=== PATIENT | female | born 1985 | race Caucasian/White ===

== ENCOUNTER 2017-10-04 15:34 | Inpatient (IN) | payer OTHER ==
[2017-10-04 16:36] LABS: ABS Basophils 0 10^3/ul (0-0.2); ABS Eosinophils 0.1 10^3/ul (0-0.6); ABS Lymphocytes 1.7 10^3/ul (1.0-4.8); ABS Monocytes 0.3 10^3/ul (0-0.8); ABS Neutrophils 3.3 10^3/ul (1.5-7.7); ABS Nucleated RBC 0 10^3/ul; Eosinophil % 2.5 % (0-6); Hematocrit 46 % (35-47); Hemoglobin 15.7 g/dl (12.0-16.0); Lymphocyte % 30.6 % (25-47); Mean Corpuscular HGB Conc 34 g/dl (31-36); Mean Corpuscular Hemoglobin 30 pg (27-31); Mean Corpuscular Volume 87 fL (80-97); Mean Platelet Volume 8.2 um3 (7.4-10.4); Nucleated Red Blood Cells % 0.1; Platelet Count 239 10^3/ul (150-450); Red Blood Count 5.27 10^6/ul (4.00-5.40); Red Cell Distribution Width 13 % (10.5-15); White Blood Count 5.5 10^3/ul (3.5-10.8)
--- NOTE | 2017-10-04 17:14 | ED ---
Psychiatric Complaint - HPI Summary HPI Summary: The patient is a 32 y/o F presenting to [facility] with a chief complaint of severe onset of depression gradually worsening over the last two months. She states that she "doesn't want to live anymore" and has SI with one attempt by OD of Cyclobenzaprine and Imitrex. She additionally c/o unable to sleep, quick weight loss of 10lbs in the last week, no appetite, and nausea/vomiting. She denies visual and auditory hallucinations. She just started taking Zoloft again three days ago after not taking it for the last two months, but she states that she doesn't think it is helping. Denies alcohol and drug use, but smokes 1 pack of cigarettes a day. LNMP was in April 2017 since stopping control and being unable to get the prescription. - History Of Current Complaint Chief Complaint: EDMentalHealth Time Seen by Provider: 10/04/17 16:14 - Allergies/Home Medications Allergies/Adverse Reactions: Allergies Allergy/AdvReac Type Severity Reaction Status Date / Time azithromycin [From Zithromax] Allergy Vomiting Verified 10/04/17 16:06 fluconazole [From Diflucan] Allergy Unknown Verified 10/04/17 16:06 Reaction Details sulfamethoxazole Allergy Unknown Verified 10/04/17 16:06 [From Bactrim] Reaction Details trimethoprim [From Bactrim] Allergy Unknown Verified 10/04/17 16:06 Reaction Details venlafaxine [From Effexor] Allergy Hives Verified 10/04/17 16:06 Home Medications: Home Medications Buspar TAB * 10/04/17 [History] Zofran 4 MG Tab* 10/04/17 [History] Zoloft* 10/04/17 [History] PMH/Surg Hx/FS Hx/Imm Hx Endocrine/Hematology History: Denies: Hx Diabetes Opthamlomology History: Denies: Hx Legally Blind EENT History: Denies: Hx Deafness Psychiatric History: Reports: Hx Depression - Immunization History Immunizations Up to Date: Yes Infectious Disease History: No Infectious Disease History: Denies: Traveled Outside the [place] in Last 30 Days - Family History Known Family History: Negative: Diabetes - Social History Alcohol Use: None Substance Use Type: Reports: None Smoking Status (MU): Never Smoked Tobacco Review of Systems Positive: Vomiting, Nausea, Other - no appetite, quick accidental weight loss Neurological: Other - unable to sleep Positive: Depressed, Other - POSITIVE: SI; NEGATIVE: visual or auditory halluciations All Other Systems Reviewed And Are Negative: Yes Physical Exam - Summary Physical Exam Summary: Constitutional: Well-developed, thin, Alert. (-) Distressed, Tearful Skin: Warm, Dry HENT: Normocephalic; Atraumatic Eyes: Conjunctiva normal Neck: Musculoskeletal ROM normal neck. (-) JVD, (-) Stridor, (-) Tracheal deviation Cardio: Rhythm regular, rate normal, Heart sounds normal; Intact distal pulses; The pedal pulses are 2+ and symmetric. Radial pulses are 2+ and symmetric. (-) Murmur Pulmonary/Chest wall: Effort normal. (-) Respiratory distress, (-) Wheezes, (-) Rales Abd: Soft, (-) epigastric tenderness, (-) Distension, (-) Guarding, (-) Rebound Musculoskeletal: (-) Edema Lymph: (-) Cervical adenopathy Neuro: Alert, Oriented x3 Psych: Mood and affect Normal Triage Information Reviewed: Yes Vital Signs On Initial Exam: Initial Vitals Temp Pulse Resp BP Pulse Ox 98.5 F 93 17 121/65 98 10/04/17 15:58 10/04/17 15:58 10/04/17 15:58 10/04/17 15:58 10/04/17 15:58 Vital Signs Reviewed: Yes Diagnostics - Vital Signs Vital Signs Temp Pulse Resp BP Pulse Ox 10/04/17 15:58 98.5 F 93 17 121/65 98 - Laboratory Lab Results: Lab Results 10/04/17 10/04/17 Range/Units 16:28 16:28 WBC 5.5 (3.5-10.8) 10^3/ul RBC 5.27 (4.00-5.40) 10^6/ul Hgb 15.7 (12.0-16.0) g/dl Hct 46 (35-47) % MCV 87 (80-97) fL MCH 30 (27-31) pg MCHC 34 (31-36) g/dl RDW 13 (10.5-15) % Plt Count 239 (150-450) 10^3/ul MPV 8.2 (7.4-10.4) um3 Neut % (Auto) 60.8 (38-83) % Lymph % (Auto) 30.6 (25-47) % [place] % (Auto) 5.5 (0-7) % Eos % (Auto) 2.5 (0-6) % Baso % (Auto) 0.6 (0-2) % Absolute Neuts (auto) 3.3 (1.5-7.7) 10^3/ul Absolute Lymphs (auto) 1.7 (1.0-4.8) 10^3/ul Absolute Monos (auto) 0.3 (0-0.8) 10^3/ul Absolute Eos (auto) 0.1 (0-0.6) 10^3/ul Absolute Basos (auto) 0 (0-0.2) 10^3/ul Absolute Nucleated RBC 0 10^3/ul Nucleated RBC % 0.1 Sodium 139 (135-145) mmol/L Potassium 4.0 (3.5-5.0) mmol/L Chloride 107 (101-111) mmol/L Carbon Dioxide 26 (22-32) mmol/L Anion Gap 6 (2-11) mmol/L BUN 8 (6-24) mg/dL Creatinine 0.85 (0.51-0.95) mg/dL Est GFR ( Amer) 94.4 (>60) Est GFR (Non-Af Amer) 78.0 (>60) BUN/Creatinine Ratio 9.4 (8-20) Glucose 91 (70-100) mg/dL Calcium 9.4 (8.6-10.3) mg/dL Total Bilirubin 0.80 (0.2-1.0) mg/dL AST 13 (13-39) U/L ALT 11 (7-52) U/L Alkaline Phosphatase 45 (34-104) U/L Total Protein 7.0 (6.4-8.9) g/dL Albumin 4.3 (3.2-5.2) g/dL Globulin 2.7 (2-4) g/dL Albumin/Globulin Ratio 1.6 (1-3) TSH Pending Salicylates < 2.50 (<30) mg/dL Acetaminophen < 15 mcg/mL Serum Alcohol < 10 (<10) mg/dL Result Diagrams: 10/04/17 16:28 10/04/17 16:28 Lab Statement: Any lab studies that have been ordered have been reviewed, and results considered in the medical decision making process. Course/Dx - Course Course Of Treatment: The patient is a 32 y/o F presenting to [facility] with a chief complaint of severe onset of depression gradually worsening over the last two months. She states that she "doesn't want to live anymore" and has SI with one attempt by OD of Cyclobenzaprine and Imitrex. She additionally c/o unable to sleep, quick weight loss of 10lbs in the last week, no appetite, and nausea/ vomiting. She denies visual and auditory hallucinations. She just started taking Zoloft again three days ago after not taking it for the last two months, but she states that she doesn't think it is helping. Denies alcohol and drug use , but smokes 1 pack of cigarettes a day. LNMP was in April 2017 since stopping control and being unable to get the prescription. Upon examination, the pt is thin and tearful. In the ED course, lab results are insignificant. Patient will be a sign-out to Dr. Barbour at shift change pending disposition after MHU. Discharge - Sign-Out/Discharge Documenting (check all that apply): Sign-Out Patient - Patient will be a sign- out to Dr. Barbour at shift change pending disposition after MHU. Signing out patient TO: Fortino Barbour - Discharge Plan Referrals: Man Head DO [Primary Care Provider] - - Attestation Statements Document Initiated by Aleida: Yes Documenting Scribe: No Owen Provider For Whom Aleida is Documenting (Include Credential): Jaya Marquez MD Scribe Attestation: INo, scribed for Jaya Marquez MD on 10/04/17 at 1914. Scribe Documentation Reviewed: Yes Provider Attestation: The documentation as recorded by the No rasheed accurately reflects the service I personally performed and the decisions made by me, Jaya Marquez MD
[2017-10-04 18:08] LABS: Urine Appearance Clear; Urine Blood Negative (Negative); Urine Color Yellow; Urine Ketones 1+ (Negative); Urine Protein Negative (Negative); Urine Specific Gravity 1.014 (1.010-1.030); Urine Urobilinogen Negative (Negative)
[2017-10-04] MEDS ORDERED: SUMAtriptan TAB* 50 MG PO ONE (20:37)
[2017-10-04] MEDS ORDERED: Mouth Piece, Nicotine* 1 EACH CARTRIDGE INH PRN (20:37)
[2017-10-04] MEDS ORDERED: Mouth Piece, Nicotine* 1 EACH CARTRIDGE INH ONE (20:37)
[2017-10-04] MEDS ORDERED: Nicotine GUM* 2 MG PO PRN (20:37)
[2017-10-04] MEDS ORDERED: Nicotine Inhaler* 10 MG AMP INH PRN (20:37)
[2017-10-05] MEDS ORDERED: Acetaminophen TAB* 325 MG PO PRN (00:50)
[2017-10-05] MEDS ORDERED: Al Hydrox/Mg Hydrox/Simet LIQ* 30 ML UDC PO PRN (00:50)
[2017-10-05] MEDS ORDERED: Mouth Piece, Nicotine* 1 EACH CARTRIDGE INH SCH (00:51)
--- NOTE | 2017-10-05 11:41 | PN ---
MHU: Group Therapy Note - Service Type Service Type: 01679 Group Psychotherapy - Cognitive Behavioral Group Therapy ( CBT):Patient was attentive and participatory in CBT programming this morning, and remained in good behavioral control. Patient expressed positive insights regarding relevant treatment interventions and goals. She was tearful at times when discussion addressed relationship stress and loss.
[2017-10-05] MEDS: Vitamin THERAPEUTIC TAB PO SCH (13:30)
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
[2017-10-05] MEDS: Ondansetron TAB* 4 MG PO PRN (16:58)
[2017-10-05] MEDS: hydrOXYzine HCL TAB* 50 MG PO PRN (19:03)
[2017-10-05] MEDS: Mirtazapine TAB* 15 MG PO SCH (20:45)
[2017-10-06] MEDS: Vitamin THERAPEUTIC TAB PO SCH (08:51)
[2017-10-06] MEDS: Ondansetron TAB* 4 MG PO PRN (08:52)
[2017-10-06] MEDS: Nicotine GUM* 2 MG PO PRN ×3 (11:02→19:37)
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
--- NOTE | 2017-10-06 13:12 | PN ---
MHU: Group Therapy Note - Service Type Service Type: [id number] Group Psychotherapy - Cognitive Behavioral Group Therapy ( CBT):Patient attended CBT programming this morning and presented with flat affect that did not vary with discussion. Although responsive to direct prompts to respond to questions, patient did not engage in spontaneous conversation.
[2017-10-06] MEDS: Prazosin CAP* 1 MG PO SCH (20:56)
[2017-10-06] MEDS: Mirtazapine TAB* 15 MG PO SCH (20:56)
[2017-10-06] MEDS: hydrOXYzine HCL TAB* 50 MG PO PRN (20:58)
[2017-10-07] MEDS: Vitamin THERAPEUTIC TAB PO SCH (08:44)
[2017-10-07] MEDS: Nicotine GUM* 2 MG PO PRN (10:12)
[2017-10-07] MEDS: hydrOXYzine HCL TAB* 50 MG PO PRN ×2 (11:45→20:49)
[2017-10-07] MEDS: Ondansetron TAB* 4 MG PO PRN (11:46)
[2017-10-07] MEDS ORDERED: SUMAtriptan TAB* 25 MG PO PRN (12:03)
--- NOTE | 2017-10-07 15:02 | PN ---
Subjective - Subjective Date of Service: 10/07/17 Service Type: 86911 Hosp care 15 min low complexity Subjective: Subha is seen in weekend coverage for Dr. Stoner. She seems to have a somewhat constricted affect but tells me that she's actually feeling better than when she came in and inquires about a discharge target date. She is somatic, complaining of migraine headaches and requests sumatriptan. She denies SI and appears to have a nice visit with two family members at lunchtime. She requests computer privileges. Staff notes indicate that she is adherent with milieu expectations. Objective - Appearance Appearance: Well Developed/Nourished Dysmorphic Features: No Hygiene: Normal Grooming: Well Kept - Behavior Psychomotor Activities: Normal Exhibits Abnormal Movement: No - Attitude and Relatedness Attitude and Relatedness: Cooperative Eye Contact: Good - Speech Quality: Unpressured Latencies: Normal Quantity: Appropriate - Mood Patient's Decription of Mood: "Okay" - Affect Observed Affect: Constricted Affect Consistent with: Dysphoria - Thought Process Patient's Thought Process: Coherent Thought Content: No Passive Wish, No Suicidal Planning, No Homicidal Ideation, No Paranoid Ideation - Sensorium Experiencing Hallucinations: No, Sensorium is Clear Type of Hallucinations: Visual: No, Auditory: No, Command: No - Level of Consciousness Level of Consciousness: Alert Orientation: Yes Intact, Yes Orientated to Time, Yes Orientated to Place, Yes Orientated to Person - Impulse Control Impulse Control: Tenuous - Insight and Judgement Insight and Judgement: Fair - Group Participation Particating in Group Activities: Yes - Medication Management Medication Management Adherence: Yes Assessment - Assessment Merits Inpatient Hospitalization: For Immediate Safety, For Stabilization Inpatient DSM-V Dx: F33.9 Clinical Impression: 32 y.o. single, white female with a history of anxiety, depression and previous attempted self-harm who presented seeking voluntary admission due to suicidal ideations following a break up with her significant other. Plan - Plan Treatment Plan: Name: SUBHA GRANADO Birthdate: 1985 [id number] The patient is tolerating treatment well with prazosin 1mg PO qhs and mirtazapine 15mg PO qhs. She requires further inpatient-level care at this time. Continued Medication Management: Start Medication Medications: Current Medications Acetaminophen (Tylenol Tab*) 650 mg PO Q4H PRN PRN Reason: PAIN or TEMP > 101 F Al Hydrox/Mg Hydrox/Simethicone (Maalox Plus*) 30 ml PO Q4H PRN PRN Reason: INDIGESTION Device (Nicotine Mouth Piece*) 1 each INH [facility] Hydroxyzine HCl (Atarax Tab*) 50 mg PO Q6H PRN PRN Reason: ANXIETY Last Admin: 10/07/17 11:45 Dose: 50 mg Mirtazapine (Remeron Tab*) 15 mg PO BEDTIME [facility] Last Admin: 10/06/17 20:56 Dose: 15 mg Multivitamins (Theragran Tab*) 1 tab PO DAILY [facility] Last Admin: 10/07/17 08:44 Dose: Not Given Nicotine (Nicotine Inhaler*) 10 mg INH Q2H PRN PRN Reason: CRAVING Nicotine Polacrilex (Nicotine Gum*) 2 mg PO Q2H PRN PRN Reason: CRAVING Last Admin: 10/07/17 10:12 Dose: 2 mg Ondansetron HCl (Zofran Tab*) 4 mg PO Q8H PRN PRN Reason: nausea/vomitting Last Admin: 10/07/17 11:46 Dose: 4 mg Prazosin HCl (Minipress Cap*) 1 mg PO BEDTIME [facility] Last Admin: 10/06/17 20:56 Dose: 1 mg Sumatriptan Succinate (Imitrex Tab*) 25 mg PO BID PRN PRN Reason: MIGRAINE HEADACHE - Discharge Plan Discharge Plan: Inpatient Hospitalization Lab Results - Lab Results Lab Results: 10/04/17 10/04/17 10/04/17 16:28 16:28 17:45 WBC 5.5 RBC 5.27 Hgb 15.7 Hct 46 MCV 87 MCH 30 MCHC 34 RDW 13 Plt Count 239 MPV 8.2 Neut % (Auto) 60.8 Lymph % (Auto) 30.6 Gaston % (Auto) 5.5 Eos % (Auto) 2.5 Baso % (Auto) 0.6 Absolute Neuts (auto) 3.3 Absolute Lymphs (auto) 1.7 Absolute Monos (auto) 0.3 Absolute Eos (auto) 0.1 Absolute Basos (auto) 0 Absolute Nucleated RBC 0 Nucleated RBC % 0.1 Sodium 139 Potassium 4.0 Chloride 107 Carbon Dioxide 26 Anion Gap 6 BUN 8 Creatinine 0.85 Est GFR ( Amer) 94.4 Est GFR (Non-Af Amer) 78.0 BUN/Creatinine Ratio 9.4 Glucose 91 Hemoglobin A1c Calcium 9.4 Total Bilirubin 0.80 AST 13 ALT 11 Alkaline Phosphatase 45 Total Protein 7.0 Albumin 4.3 Globulin 2.7 Albumin/Globulin Ratio 1.6 Triglycerides Cholesterol LDL Cholesterol HDL Cholesterol TSH 0.36 Urine Color Yellow Urine Appearance Clear Urine pH 5.0 Ur Specific Brillion 1.014 Urine Protein Negative Urine Ketones 1+ A Urine Blood Negative Urine Nitrate Negative Urine Bilirubin Negative Urine Urobilinogen Negative Ur Leukocyte Esterase Negative Urine Glucose Negative Salicylates < 2.50 Urine Opiates Screen Acetaminophen < 15 Ur Barbiturates Screen Ur Phencyclidine Scrn Ur Amphetamines Screen U Benzodiazepines Scrn Urine Cocaine Screen U Cannabinoids Screen Serum Alcohol < 10 10/04/17 10/05/17 10/05/17 17:45 08:15 08:15 WBC RBC Hgb Hct MCV MCH MCHC RDW Plt Count MPV Neut % (Auto) Lymph % (Auto) Gaston % (Auto) Eos % (Auto) Baso % (Auto) Absolute Neuts (auto) Absolute Lymphs (auto) Absolute Monos (auto) Absolute Eos (auto) Absolute Basos (auto) Absolute Nucleated RBC Nucleated RBC % Sodium Potassium Chloride Carbon Dioxide Anion Gap BUN Creatinine Est GFR ( Amer) Est GFR (Non-Af Amer) BUN/Creatinine Ratio Glucose Hemoglobin A1c 5.2 Calcium Total Bilirubin AST ALT Alkaline Phosphatase Total Protein Albumin Globulin Albumin/Globulin Ratio Triglycerides 64 Cholesterol 184 LDL Cholesterol 117 HDL Cholesterol 54.6 TSH Urine Color Urine Appearance Urine pH Ur Specific Brillion Urine Protein Urine Ketones Urine Blood Urine Nitrate Urine Bilirubin Urine Urobilinogen Ur Leukocyte Esterase Urine Glucose Salicylates Urine Opiates Screen None detected Acetaminophen Ur Barbiturates Screen None detected Ur Phencyclidine Scrn None detected Ur Amphetamines Screen None detected U Benzodiazepines Scrn None detected Urine Cocaine Screen None detected U Cannabinoids Screen None detected Serum Alcohol
[2017-10-07] MEDS ORDERED: Mouth Piece, Nicotine* 1 EACH CARTRIDGE ONE (19:22)
[2017-10-07] MEDS: Nicotine Inhaler* 10 MG AMP INH PRN (19:23)
[2017-10-07] MEDS: Prazosin CAP* 1 MG PO SCH (20:47)
[2017-10-07] MEDS: Mirtazapine TAB* 15 MG PO SCH (20:47)
[2017-10-08] MEDS: Vitamin THERAPEUTIC TAB PO SCH (08:56)
[2017-10-08] MEDS: Nicotine Inhaler* 10 MG AMP INH PRN ×3 (08:57→16:05)
[2017-10-08] MEDS: hydrOXYzine HCL TAB* 50 MG PO PRN ×2 (11:23→19:16)
[2017-10-08] MEDS: Nicotine GUM* 2 MG PO PRN ×2 (11:54→16:06)
[2017-10-08] MEDS: Mirtazapine TAB* 15 MG PO SCH (21:01)
[2017-10-08] MEDS: Prazosin CAP* 1 MG PO SCH (21:01)
[2017-10-09] MEDS: Vitamin THERAPEUTIC TAB PO SCH (08:26)
[2017-10-09] MEDS: hydrOXYzine HCL TAB* 50 MG PO PRN ×2 (08:56→19:13)
[2017-10-09] MEDS: Nicotine Inhaler* 10 MG AMP INH PRN ×4 (08:57→22:09)
[2017-10-09] MEDS: Nicotine GUM* 2 MG PO PRN ×3 (08:57→16:12)
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
[2017-10-09] MEDS ORDERED: Mirtazapine TAB* 15 MG PO SCH (21:00)
[2017-10-09] MEDS: Prazosin CAP* 1 MG PO SCH (21:39)
[2017-10-10] MEDS: Ondansetron TAB* 4 MG PO PRN (09:00)
[2017-10-10] MEDS: Vitamin THERAPEUTIC TAB PO SCH (09:00)
[2017-10-10] MEDS: Nicotine GUM* 2 MG PO PRN ×2 (09:15→14:08)
[2017-10-10] MEDS: Nicotine Inhaler* 10 MG AMP INH PRN ×3 (11:44→19:45)
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
[2017-10-10] MEDS: hydrOXYzine HCL TAB* 50 MG PO PRN (19:42)
[2017-10-10] MEDS: Prazosin CAP* 1 MG PO SCH (20:29)
[2017-10-10] MEDS ORDERED: Mirtazapine TAB* 15 MG PO SCH (21:00)
[2017-10-11 08:19] VITALS: BP 104/74
[2017-10-11] MEDS: Ondansetron TAB* 4 MG PO PRN (08:43)
[2017-10-11] MEDS: Nicotine GUM* 2 MG PO PRN (08:43)
[2017-10-11] MEDS: hydrOXYzine HCL TAB* 50 MG PO PRN (08:44)
[2017-10-11] MEDS: Nicotine Inhaler* 10 MG AMP INH PRN (08:44)
[2017-10-11] MEDS: Vitamin THERAPEUTIC TAB PO SCH (09:02)
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
== END 2017-10-11 12:45 | disposition home or self-care (01) | DRG 751 ==
LOC: ED 15:34 → BSU 22:13
PROVIDERS: ADMIT Psychiatry & Neurology Psychiatry; ATTEND Psychiatry & Neurology Psychiatry
DX: F33.9 Major depressive disorder, recurrent, unspecified (principal); R45.851 Suicidal ideations; F43.22 Adjustment disorder with anxiety; F60.9 Personality disorder, unspecified; F17.210 Nicotine dependence, cigarettes, uncomplicated; Z88.1 Allergy status to other antibiotic agents; Z88.2 Allergy status to sulfonamides; Z88.8 Allergy status to other drugs, medicaments and biological substances
CPT/HCPCS: 36415; 80053; 80061; 80307; 80320; 80329; 81003; 83036; 84443; 85025; 90853; 99222; 99231; 99285; A9270-GY; G0480

== ENCOUNTER 2018-07-12 18:58 | Inpatient (IN) | payer OTHER ==
--- NOTE | 2018-07-12 19:37 | ED ---
Psychiatric Complaint - HPI Summary HPI Summary: The patient is a 33 y/o F presenting to [facility] accompanied by parents with a chief complaint of increased SI with an undefined plan with gradual increase for a few days and worsening since this morning. She reports the she saw her therapist this morning, but her suicidal thoughts have not changed since then. She states that she recently had a dream that the devil was at the end of her bed, and although she knows it was a dream, she says that she has "felt very off " since then. She also reports that she has been compliant with her prescribed medications for dx of depression and anxiety, and her dosage was recently increased two weeks ago, but she doesn't think that her medications are helping completely. She denies CP and SOB at this time. Nonsmoker, no EtOH, no substance use. - History Of Current Complaint Chief Complaint: EDMentalHealth Time Seen by Provider: 07/12/18 19:13 Hx Obtained From: Patient Onset/Duration: Gradual Onset, Still Present Timing: Days Severity Initially: Mild Severity Currently: Moderate Character: Depressed, Anxious Aggravating Factor(s): Recent Stress - had a dream about the devil being in her room and SI has been present since Alleviating Factor(s): Counseling - some relief, but SI still present Related History: Positive For: Prior Psychiatric Issues - anxiety and depression Has Suicidal: Reports: Thoughts, With A Plan - unspecified - Allergies/Home Medications Allergies/Adverse Reactions: Allergies Allergy/AdvReac Type Severity Reaction Status Date / Time azithromycin [From Zithromax] Allergy Vomiting Verified 07/12/18 19:04 fluconazole [From Diflucan] Allergy Unknown Verified 07/12/18 19:04 Reaction Details sulfamethoxazole Allergy Unknown Verified 07/12/18 19:04 [From Bactrim] Reaction Details trimethoprim [From Bactrim] Allergy Unknown Verified 07/12/18 19:04 Reaction Details venlafaxine [From Effexor] Allergy Hives Verified 07/12/18 19:04 Home Medications: Home Medications Junel (NF) 150 mcg PO BEDTIME 07/12/18 [History Confirmed 07/12/18] Prazosin CAP* [Minipress CAP*] 8 mg PO BEDTIME 07/12/18 [History Confirmed 07/12] hydrOXYzine HCL TAB* [Atarax TAB 50 MG *] 50 mg PO DAILY PRN 07/12/18 [History Confirmed 07/12/18] Ondansetron HCl [Zofran 4 MG TAB] 4 mg PO BID PRN 07/13/18 [History Confirmed ] SUMAtriptan TAB* [Imitrex TAB*] 100 mg PO DAILY PRN 07/13/18 [History Confirmed 07/13/18] PMH/Surg Hx/FS Hx/Imm Hx Endocrine/Hematology History: Denies: Hx Diabetes Respiratory History: Reports: Hx Chronic Obstructive Pulmonary Disease (COPD), Hx Pneumonia Denies: Hx Asthma, Hx Chronic Bronchitis, Hx Cystic Fibrosis, Hx Lung Cancer , Hx Pleural Effusion GI History: Reports: Hx Gastroesophageal Reflux Disease Musculoskeletal History: Reports: Hx Orthopedic Injury - Right foot, Hx Tendonitis Sensory History: Reports: Hx Contacts or Glasses Denies: Hx Legally Blind, Hx Deafness, Hx Hearing Aid Opthamlomology History: Reports: Hx Contacts or Glasses Denies: Hx Legally Blind Neurological History: Reports: Hx Headaches, Hx Migraine Psychiatric History: Reports: Hx Anxiety, Hx Attention Deficit Hyperactivity Disorder, Hx Depression, Hx Inpatient Treatment Denies: Hx Bipolar Disorder, Hx of Violent Episodes Against Others - Surgical History Surgery Procedure, Year, and Place: cervical 2013. Right foot 2001, 2002, 2006 , 2008, 2016 Infectious Disease History: No Infectious Disease History: Denies: Traveled Outside the [place] in Last 30 Days - Family History Known Family History: Negative: Diabetes - Social History Alcohol Use: None Hx Substance Use: No Substance Use Type: Reports: None Hx Tobacco Use: No Smoking Status (MU): Never Smoked Tobacco Do You Chew or Dip Tobacco: No Have You Chewed or Dipped Tobacco in the LAST YEAR: No Have You Smoked in the Last Year: No Review of Systems Negative: Chest Pain Negative: Shortness Of Breath Psychological: Other - SI with a plan All Other Systems Reviewed And Are Negative: Yes Physical Exam - Summary Physical Exam Summary: Appearance: Depressed affect, no pain distress Skin: warm, dry, reflects adequate perfusion Head/face: normal Eyes: EOMI, MARCELLO ENT: normal Neck: supple, non-tender Respiratory: CTA, breath sounds present Cardiovascular: RRR, pulses symmetrical Abdomen: non-tender, soft Musculoskeletal: normal, strength/ROM intact Neuro: normal, sensory motor intact, A&Ox3 Triage Information Reviewed: Yes Vital Signs On Initial Exam: Initial Vitals Temp Pulse Resp BP Pulse Ox 98.7 F 83 20 145/85 100 07/12/18 19:04 07/12/18 19:04 07/12/18 19:04 07/12/18 19:04 07/12/18 19:04 Vital Signs Reviewed: Yes Diagnostics - Vital Signs Vital Signs Temp Pulse Resp BP Pulse Ox 07/12/18 19:04 98.7 F 83 20 145/85 100 - Laboratory Result Diagrams: 07/12/18 19:46 07/12/18 19:46 Lab Statement: Any lab studies that have been ordered have been reviewed, and results considered in the medical decision making process. Course/Dx - Course Assessment/Plan: The patient is a 33 y/o F presenting to [facility] accompanied by parents with a chief complaint of increased SI with an undefined plan with gradual increase for a few days and worsening since this morning after seeing her psychiatrist. She also recently had a dream about the devil being in her room, and her symptoms have been present since. Upon physical exam, the patient exhibits a depressed affect but otherwise has a negative exam. In the ED course , the patient was administered Remeron, Hydroxyzine, Junel, and Prazosin. Blood work, UA, and toxicology report obtained. Medically cleared at 2044. At 0, I spoke with Cristel Reyes, mental health tab cutting machine operator, who reports that Dr. Earl, psychiatry, accepts the patient for admission with dx of unspecified depressive disorder. She agrees with this plan and understands the need for admission at this time. - Differential Dx/Clinical Impression Differential Diagnosis/HQI/PQRI: Positive: Depression Provider Diagnosis: Depression, Major depressive disorder, recurrent, unspecified - Physician Notifications Discussed Care Of Patient With: Cristel Reyes - mental health tab cutting machine operator Time Discussed With Above Provider: 00:30 Instructed by Provider To: Other - Cristel Reyes reports that Dr. Earl, psychiatry , accepts the patient for admission to [facility] with dx of unspecifed depressive disorder. Discharge - Sign-Out/Discharge Documenting (check all that apply): Patient Departure - Patient is accepted for admission by Dr. Earl. Patient Received Moderate/Deep Sedation with Procedure: No - Discharge Plan Condition: Stable Disposition: [place]IATR[place] [place]illing Disposition and Condition Condition: STABLE Disposition: Psychiatric [place] [facility] [place] Attestation Statements Document Initiated by Scribe: Yes Documenting Scribe: No Oewn Provider For Whom Aleida is Documenting (Include Credential): Dr. Salvador Newton MD Scribe Attestation: I, brian Mataibed for Dr. Salvador Newton MD on 07/13/18 at 1943. Scribe Documentation Reviewed: Yes Provider Attestation: The documentation as recorded by the No rasheed accurately reflects the service I personally performed and the decisions made by me, Dr. Salvador Newton MD Status of Scribe Document: Viewed
[2018-07-12 19:43] LABS: Urine Appearance Cloudy; Urine Bacteria 1+ (Absent); Urine Bilirubin Negative (Negative); Urine Blood 2+ (Negative); Urine Color Yellow; Urine Glucose Negative (Negative); Urine Ketones Negative (Negative); Urine Nitrite Negative (Negative); Urine Protein Negative (Negative); Urine Red Blood Cell Trace(0-2/hpf) (Absent); Urine Specific Gravity 1.013 (1.010-1.030); Urine Squamous Epithelial Cell Present (Absent); Urine Urobilinogen Negative (Negative); Urine White Blood Cell Trace(0-5/hpf) (Absent)
[2018-07-12 19:53] LABS: ABS Eosinophils 0.2 10^3/ul (0-0.6); ABS Lymphocytes 2.3 10^3/ul (1.0-4.8); ABS Monocytes 0.3 10^3/ul (0-0.8); ABS Neutrophils 4.6 10^3/ul (1.5-7.7); Eosinophil % 2.2 %; Hematocrit 42 % (35-47); Hemoglobin 14.2 g/dL (12.0-16.0); Lymphocyte % 31.5 %; Mean Corpuscular HGB Conc 34 g/dL (31-36); Mean Corpuscular Hemoglobin 30 pg (27-31); Mean Corpuscular Volume 90 fL (80-97); Mean Platelet Volume 8.7 fL (7.4-10.4); Nucleated Red Blood Cells % 0.1; Platelet Count 237 10^3/uL (150-450); Red Blood Count 4.67 10^6 /uL (3.70-4.87); Red Cell Distribution Width 13 % (10.5-15); White Blood Count 7.3 10^3/uL (3.5-10.8)
[2018-07-12 19:58] LABS: Urine Benzodiazepine Screen None Detected (None Detect); Urine Opiates Screen None Detected (None Detect)
[2018-07-12 20:09] LABS: ALT 9 U/L (7-52); AST 13 U/L (13-39); Albumin 4.4 g/dL (3.2-5.2); Albumin/Globulin Ratio 1.6 (1-3); Alkaline Phosphatase 39 U/L (34-104); Anion Gap 6 mmol/L (2-11); BUN/Creatinine Ratio 7.8 (8-20); Blood Urea Nitrogen 8 mg/dL (6-24); CO2 Carbon Dioxide 25 mmol/L (22-32); Calcium 9.6 mg/dL (8.6-10.3); Chloride 108 mmol/L (101-111); EGFR African American 75.1 (>60); EGFR Non-African American 62.1 (>60); Globulin 2.8 g/dL (2-4); Glucose 98 mg/dL (70-100); Potassium 3.6 mmol/L (3.5-5.0); Sodium 139 mmol/L (135-145); Total Protein 7.2 g/dL (6.4-8.9)
[2018-07-12 20:21] LABS: Acetaminophen < 15 mcg/mL; Alcohol < 10 mg/dL (<10); Salicylate < 2.50 mg/dL (<30)
[2018-07-12 20:33] LABS: TSH (Thyroid Stimulating Horm) 1.77 mcIU/mL (0.34-5.60)
[2018-07-12] MEDS ORDERED: Mirtazapine TAB* 15 MG PO PRN (23:56)
[2018-07-12] MEDS ORDERED: Prazosin CAP* 1 MG PO ONE (23:56)
[2018-07-13] MEDS ORDERED: hydrOXYzine HCL TAB* 50 MG PO PRN (00:25)
[2018-07-13] MEDS ORDERED: SUMAtriptan TAB* 100 MG PO PRN (00:49)
[2018-07-13] MEDS ORDERED: Prazosin CAP* 5 MG PO ONE (01:00)
[2018-07-13] MEDS ORDERED: Prazosin CAP* 1 MG PO ONE (01:00)
[2018-07-13] MEDS ORDERED: Al Hydrox/Mg Hydrox/Simet LIQ* 30 ML UDC PO PRN (01:30)
[2018-07-13] MEDS ORDERED: Acetaminophen TAB* 325 MG PO PRN (01:30)
[2018-07-13] MEDS: Ondansetron TAB* 4 MG PO PRN (07:56)
[2018-07-13] MEDS ORDERED: Norethindrone/Eth Est 1.5/30NF 1 TAB TAB PO SCH (09:00)
[2018-07-13] MEDS: Nicotine* 2MG (FRUIT FLAVOR) GUM PO PRN ×3 (09:21→19:04)
[2018-07-13] MEDS: Vitamin THERAPEUTIC TAB PO SCH (09:22)
[2018-07-13] MEDS: Nicotine PATCH 21 MG/24 HR* PATCH TRANSDERM SCH (09:22)
--- NOTE | 2018-07-13 20:31 | HP ---
HISTORY AND PHYSICAL: DATE OF ADMISSION: 07/13/18 PROVIDER: Ya Gross NP, in Psychiatry SUPERVISING PHYSICIAN: Javan Earl MD * (DICTATED BY YA GROSS NP ) JUSTIFICATION FOR ADMISSION: The patient is in need of 24-hour supervision and care secondary to suicidal ideation with plans. CHIEF COMPLAINT: "People are asking me why did I see it, was it a sign for something." HISTORY OF PRESENT ILLNESS: The patient is a 33-year-old single white female with a history of depression and anxiety who comes to the emergency department by car and is here on a voluntary status following a disturbing dream she had on 06/25/18, where she saw the devil in dream, vividly seeing the horns and a face and a laughing face; since then she has been spiralling into suicidal ideation and has plans, but has stopped herself from going through them because she knows she would be hurting people too much. Subha has been struggling with suicidal ideation since approximately . She states before that she went on a trip to [place] with her father from 06/17/18 to 06/22/18. Everything there was okay. When she came home, she had this nightmare which led her to self isolate. She states that she went to her best friend eventually and the friend said why did not you come to me sooner. Subha states she did not to worry her but she has been contemplating suicide since that dream. Subha is in therapy. She has gone to therapy 2 times the week of admission but continues to question why did she see what she saw in her dream and was it a sign for something. She also wonders if the dreams were real or not. Subha seems highly anxious. She does not sleep as well as she would like. She is not particularly irritable but she is guilt ridden about the fact that she could be putting people through difficulty by her own mental illness. She is distractible when I talk to her. She continues to look to the other side of the room and has trouble answering my questions. She is a reliable historian but her story meanders and she does not readily come to the point. The most relevant quote she gives is this: "I feel overwhelmed, I am stressed, my anxiety is high, my depression is getting worse. I have been acting like every thing is fine when it is not. The suicidal thoughts are there, but something is stopping me from doing it, like the people who will be hurt by it. I do not want to hurt my family and friends." PAST PSYCHIATRIC HISTORY: She has had an inpatient admission here at [facility] in September of 2017. She has had 2 other admissions in the [facility] prior to that in April of 2017 and May of 2017. She has been treated outpatient by a woman named Magali Solano (?) in [place] and she does not have a psychiatrist or psychiatric nurse practitioner. She is prescribed medication by her primary care doctor. PAST MEDICAL HISTORY: No active medical problems. CURRENT MEDICATIONS: Include: 1. Hydroxyzine 50 mg at bedtime. 2. Prazosin 8 mg at bedtime. 3. Mirtazapine 30 mg at bedtime. 4. A control pill. 5. Zofran for nausea. She has tried Zoloft, but it made her very tired. ALLERGIES: She is allergic to VENLAFAXINE, AZITHROMYCIN, FLUCONAZOLE, SULFAMETHIZOLE, and TRIMETHOPRIM. She has had no inpatient or outpatient drug treatment. She has a history of suicidal thoughts and attempts. She has no history of homicidal threats or attempts or intent. She has no history of aggressive or agitated behavior when she decompensates. She had access to fire arms, but they were removed by her father. SUBSTANCE ABUSE HISTORY: Subha denies any illicit substances or alcohol use. Urine toxicology is negative. She does smoke cigarettes 1 pack per day. FAMILY PSYCHIATRIC HISTORY: Asha denies any family history of psychiatric illness, suicide, or substance abuse. FAMILY AND PSYCHOSOCIAL HISTORY: Subha lives with her parents. She was in an unstable relationship but that has ended. She is not . She has no children. She was raised by her parents in [place], [place]. Her support system includes her parents, her therapist Rosina, and her best friend. REVIEW OF SYSTEMS: Negative for any physical complaint. PHYSICAL EXAMINATION VITAL SIGNS: Within normal limits. ED physical is grossly normal with no active medical problems. On 07/13/18, at 0157, temperature was 97.6, pulse 102 , respirations 16, O2 sat 99, blood pressure 115/64. HEENT: Head and face: Normal. Eyes: EOMI, PERRLA. ENT: Normal. NECK: Supple, nontender. RESPIRATORY: CTA. Breath sounds present. CARDIOVASCULAR: RRR. Pulse is symmetrical. ABDOMEN: Nontender and soft. MUSCULOSKELETAL: Normal strength and range of motion intact. NEURO: Normal sensory, motor intact. Alert and oriented x4. SKIN: Warm and dry reflects adequate perfusion. LABORATORY DATA: Hematology data is all within normal limits. Chemistry within normal limits with the exception of creatinine high at 1.03, BUN and creatinine ratio low at 7.8. Urine screen contained 2+ blood, trace leukocyte esterase, present epithelial cells and positive for urine bacteria. Toxicology screen is clear. Microbiology screen shows no growth in the final urine culture. MENTAL STATUS EXAMINATION: Asha is a 33-year-old female who appears her stated age, but behaves younger than her stated age. Her hygiene is good. Her grooming is fair. She is cooperative. She is not tearful. Her speech is of a normal rate, tone, and volume. She states she is depressed. She appears anxious and distractible. She has circumstantial speech. She is positive for suicidal ideation with no intent, but with plans. Her thought processes may be slightly obsessive related to the dream that she had. Her attention is fair to poor. Orientation is intact. Her concentration is fair. Her memory is fair. Insight and judgment are fair. Impulse control is fair to good. DIAGNOSIS: Major depressive disorder, anxiety, unspecified, rule out personality disorder, not otherwise specified. IMPRESSION: Subha is a 33-year-old woman with a history of depression and anxiety with no recent suicide attempt. She is currently admitted due to worsening of depression and anxiety with suicidal thoughts and several plans. She struggles with night terrors as she terms them and she is a danger to herself if discharged, thus she will be stabilized on inpatient unit with medication adjustments and therapy. PLAN: Subha is admitted to the adult behavioral health unit and placed on q.15 minute checks for her own safety. She is encouraged to participate in supportive milieu, individual, and group therapies. Estimated length of stay is 5 to 7 days. We will check our records for MMPIs and if she has not engaged in this testing, we will administer it. We will titrate medications including reducing mirtazapine and starting Lexapro. We will monitor for mood and thought contest. Discharge planning will include family involvement and outpatient providers. YA GROSS, GABBIE [id number]/[facility] #: [id number] JUDITH
[2018-07-13] MEDS: ETHINYL ESTRADIOL PO SCH (20:53)
[2018-07-13] MEDS: NORETHINDRONE PO SCH (20:53)
[2018-07-13] MEDS: Prazosin CAP* 5 MG PO SCH (20:55)
[2018-07-13] MEDS: Prazosin CAP* 1 MG PO SCH (20:55)
[2018-07-13] MEDS: Nicotine Patch Removal NOTE PATCH OFF SCH (20:59)
[2018-07-13] MEDS ORDERED: Mirtazapine TAB* 15 MG PO SCH (21:00)
[2018-07-13] MEDS: hydrOXYzine HCL TAB* 50 MG PO PRN (21:18)
[2018-07-14 07:18] LABS: HDL Cholesterol 40.6 mg/dL
[2018-07-14] MEDS: Nicotine* 2MG (FRUIT FLAVOR) GUM PO PRN ×2 (08:51→13:48)
[2018-07-14] MEDS: Vitamin THERAPEUTIC TAB PO SCH (08:52)
[2018-07-14] MEDS: Nicotine PATCH 21 MG/24 HR* PATCH TRANSDERM SCH (08:52)
[2018-07-14] MEDS ORDERED: Escitalopram * 5 MG TAB PO ONE (18:00)
[2018-07-14] MEDS: ETHINYL ESTRADIOL PO SCH (20:37)
[2018-07-14] MEDS: NORETHINDRONE PO SCH (20:37)
[2018-07-14] MEDS: Mirtazapine TAB* 15 MG PO SCH (20:37)
[2018-07-14] MEDS: hydrOXYzine HCL TAB* 50 MG PO PRN (20:39)
[2018-07-14] MEDS: Prazosin CAP* 1 MG PO SCH (21:28)
[2018-07-14] MEDS: Prazosin CAP* 5 MG PO SCH (21:29)
[2018-07-14] MEDS: Nicotine Patch Removal NOTE PATCH OFF SCH (21:47)
[2018-07-15] MEDS: Nicotine PATCH 21 MG/24 HR* PATCH TRANSDERM SCH (08:15)
[2018-07-15] MEDS: Vitamin THERAPEUTIC TAB PO SCH (08:17)
[2018-07-15] MEDS: Escitalopram * 5 MG TAB PO SCH (09:30)
[2018-07-15] MEDS: Nicotine* 2MG (FRUIT FLAVOR) GUM PO PRN ×3 (09:31→17:44)
--- NOTE | 2018-07-15 17:42 | PN ---
Subjective - Subjective Date of Service: 07/15/18 Service Type: 15476 Hosp care 15 min low complexity Subjective: Subha has improved quickly after admission and she attribute that to the [facility] therapeutic envioronment and the staff professionalism. Since admission her sleep and appetite have been very good. She feels comfortable on the unit and the foos is good as well. Didn't have suicidal thoughts any more. Tolerating med changes well. Objective - General Observations Appearance: Neat, Well Groomed Appears Stated Age: Yes Stature: WNL Posture: WNL Eye Contact: Average Behavior/Activity: WNL - Interaction Observations Attitude Towards Examiner: Cooperative Stated Mood: Euthymic Affect: Full Speech Pattern/Tone: Clear, Appropriate Thought Process: Coherent, Goal Directed Perception: WNL Hallucination Type: None - Cognitive Function Orientation: A&O x 4 Level of Consciousness: Awake, Alert Cognition: WNL Estimated Intelligence: Normal Judgment Within Normal Limits: Yes Ability to Make Reasonable Decisions: Mildly Impaired - Medication Compliance Cooperative with Inpatient Medication Regimen: Yes - Group Participation Participates in Group Activities: Yes Assessment - Assessment Merits Inpatient Hospitalization: For Immediate Safety, For Stabilization, Pending Safe DC Plan Plan - Plan Treatment Plan: Name: SUBHA GRANADO Birthdate: 1985 [id number] Continued Medication Management: Continue Outpt Medication Medications: Current Medications Acetaminophen (Tylenol Tab*) 650 mg PO Q4H PRN PRN Reason: PAIN or TEMP > 101 F Last Admin: 07/13/18 01:55 Dose: 650 mg Al Hydrox/Mg Hydrox/Simethicone (Maalox Plus*) 30 ml PO Q4H PRN PRN Reason: INDIGESTION Escitalopram Oxalate (Lexapro *) 5 mg PO DAILY [facility] Last Admin: 07/15/18 09:30 Dose: 5 mg Hydroxyzine HCl (Atarax Tab*) 50 mg PO DAILY PRN PRN Reason: ANXIETY Last Admin: 07/14/18 20:39 Dose: 50 mg Mirtazapine (Remeron Tab*) 15 mg PO BEDTIME [facility] Last Admin: 07/14/18 20:37 Dose: 15 mg Multivitamins (Theragran Tab*) 1 tab PO DAILY [facility] Last Admin: 07/15/18 08:17 Dose: Not Given Nicotine (Nicotine Patch 21 Mg/24 Hr*) 1 patch TRANSDERM DAILY [facility] Last Admin: 07/15/18 08:15 Dose: Not Given Nicotine Polacrilex (Nicotine Gum*) 2 mg PO Q2H PRN PRN Reason: CRAVINGS Last Admin: 07/15/18 14:53 Dose: 2 mg Pto: *Norethindrone /Ethinyl Estradiol * 1 dose PO BEDTIME [facility] Last Admin: 07/14/18 20:37 Dose: 1 dose Ondansetron HCl (Zofran Tab*) 4 mg PO BID PRN PRN Reason: NAUSEA Last Admin: 07/13/18 07:56 Dose: 4 mg Pharmacy Profile Note (Nicotine Patch Removal Note*) 1 note PATCH OFF 2100 [facility] Last Admin: 07/14/18 21:47 Dose: Not Given Prazosin HCl (Minipress Cap*) 3 mg PO BEDTIME [facility] Last Admin: 07/14/18 21:28 Dose: 3 mg Prazosin HCl (Minipress Cap*) 5 mg PO BEDTIME [facility] Last Admin: 07/14/18 21:29 Dose: 5 mg Sumatriptan Succinate (Imitrex Tab*) 100 mg PO DAILY PRN PRN Reason: MIGRAINE HEADACHE - Discharge Plan Discharge Plan: Outpatient Follow Up Outpatient Program: [facility]
[2018-07-15] MEDS: Prazosin CAP* 5 MG PO SCH (21:19)
[2018-07-15] MEDS: Prazosin CAP* 1 MG PO SCH (21:19)
[2018-07-15] MEDS: Mirtazapine TAB* 15 MG PO SCH (21:20)
[2018-07-15] MEDS: ETHINYL ESTRADIOL PO SCH (21:21)
[2018-07-15] MEDS: NORETHINDRONE PO SCH (21:21)
[2018-07-15] MEDS: hydrOXYzine HCL TAB* 50 MG PO PRN (21:22)
[2018-07-15] MEDS: Nicotine Patch Removal NOTE PATCH OFF SCH (21:31)
[2018-07-16] MEDS: Ondansetron TAB* 4 MG PO PRN (07:34)
[2018-07-16] MEDS: Vitamin THERAPEUTIC TAB PO SCH (09:16)
[2018-07-16] MEDS: Escitalopram * 5 MG TAB PO SCH (09:16)
[2018-07-16] MEDS: Nicotine PATCH 21 MG/24 HR* PATCH TRANSDERM SCH (09:16)
[2018-07-16] MEDS: Nicotine* 2MG (FRUIT FLAVOR) GUM PO PRN ×3 (09:17→19:21)
--- NOTE | 2018-07-16 12:57 | PN ---
BSU: Group Therapy Note - Service Type Service Type: 24977 Group Psychotherapy - Cognitive Behavioral Group Therapy ( CBT):Patient was attentive and participatory in CBT programming this morning, and remained in good behavioral control. Patient expressed positive insights regarding relevant treatment interventions and goals.
--- NOTE | 2018-07-16 18:31 | PN ---
Subjective - Subjective Date of Service: 07/16/18 Service Type: 61921 Hosp care 25 min moderate complexity Subjective: Asha remains unclear about what she needs from the hospitalization other than "Time away from society." In further conversation, it appears that she longs to have a good relationship with her mother and that she does have a good relationship with her father. She also remarks that she has a close friend who she is close to. In short, she seems to be requesting help with making relationships more suitable to her needs. She is not particularly forthcoming about that, however. Asha states the Lexapro makes her anxious and jumpy. We will discontinue it and return mirtazapine back t 30 mg. Objective - General Observations Appearance: Neat Appears Stated Age: Yes Stature: Thin Posture: WNL Eye Contact: Average Behavior/Activity: WNL - Interaction Observations Attitude Towards Examiner: Cooperative Stated Mood: Dysphoric Affect: Blunted Speech Pattern/Tone: Clear Thought Process: Coherent, Tangential Perception: WNL Thought Content: Preoccupation/Ruminations Thought Process: Lethality: Passive Wish, Suicidal Planning Hallucination Type: None Delusion Type: None - Cognitive Function Orientation: A&O x 4 Level of Consciousness: Awake, Alert, Appropriate, Responds to Pain Cognition: Impaired Ability to Abstract Estimated Intelligence: Borderline Range Insight: WNL Judgment Within Normal Limits: No Ability to Make Reasonable Decisions: Moderately Impaired - Medication Compliance Cooperative with Inpatient Medication Regimen: Yes - Group Participation Participates in Group Activities: Yes Assessment - Assessment Merits Inpatient Hospitalization: For Immediate Safety Inpatient DSM-V Dx: F32.9 Clinical Impression: "Asah" is a 33-year-old white woman with a history of hospitalizations in other locations who comes to [facility] with thoughts of ending her life in the context of a dream she had as well as family conflict. She merits inptient stay to come to baseline where she will no longer have thoughts of suicide. Plan - Plan Treatment Plan: Name: GABRIEL GRANADO Birthdate: 1985 [id number] Lexapro will be discontinued and Outpatient dose of mirtazapine will be restored to 30 mg. Continued Medication Management: Continue Outpt Medication Medications: Current Medications Acetaminophen (Tylenol Tab*) 650 mg PO Q4H PRN PRN Reason: PAIN or TEMP > 101 F Last Admin: 07/13/18 01:55 Dose: 650 mg Al Hydrox/Mg Hydrox/Simethicone (Maalox Plus*) 30 ml PO Q4H PRN PRN Reason: INDIGESTION Escitalopram Oxalate (Lexapro *) 5 mg PO DAILY [facility] Last Admin: 07/16/18 09:16 Dose: 5 mg Hydroxyzine HCl (Atarax Tab*) 50 mg PO DAILY PRN PRN Reason: ANXIETY Last Admin: 07/15/18 21:22 Dose: 50 mg Mirtazapine (Remeron Tab*) 15 mg PO BEDTIME [facility] Last Admin: 07/15/18 21:20 Dose: 15 mg Multivitamins (Theragran Tab*) 1 tab PO DAILY [facility] Last Admin: 07/16/18 09:16 Dose: Not Given Nicotine (Nicotine Patch 21 Mg/24 Hr*) 1 patch TRANSDERM DAILY [facility] Last Admin: 07/16/18 09:16 Dose: Not Given Nicotine Polacrilex (Nicotine Gum*) 2 mg PO Q2H PRN PRN Reason: CRAVINGS Last Admin: 07/16/18 14:05 Dose: 2 mg Pto: *Norethindrone /Ethinyl Estradiol * 1 dose PO BEDTIME [facility] Last Admin: 07/15/18 21:21 Dose: 1 dose Ondansetron HCl (Zofran Tab*) 4 mg PO BID PRN PRN Reason: NAUSEA Last Admin: 07/16/18 07:34 Dose: 4 mg Pharmacy Profile Note (Nicotine Patch Removal Note*) 1 note PATCH OFF 2100 [facility] Last Admin: 07/15/18 21:31 Dose: Not Given Prazosin HCl (Minipress Cap*) 3 mg PO BEDTIME [facility] Last Admin: 07/15/18 21:19 Dose: 3 mg Prazosin HCl (Minipress Cap*) 5 mg PO BEDTIME [facility] Last Admin: 07/15/18 21:19 Dose: 5 mg Sumatriptan Succinate (Imitrex Tab*) 100 mg PO DAILY PRN PRN Reason: MIGRAINE HEADACHE
[2018-07-16] MEDS: Mirtazapine TAB* 15 MG PO SCH (20:01)
[2018-07-16] MEDS: Prazosin CAP* 1 MG PO SCH (20:03)
[2018-07-16] MEDS: Prazosin CAP* 5 MG PO SCH (20:04)
[2018-07-16] MEDS: ETHINYL ESTRADIOL PO SCH (20:05)
[2018-07-16] MEDS: NORETHINDRONE PO SCH (20:05)
[2018-07-16] MEDS: Nicotine Patch Removal NOTE PATCH OFF SCH (20:07)
[2018-07-17] MEDS: Ondansetron TAB* 4 MG PO PRN (06:24)
[2018-07-17] MEDS: Nicotine* 2MG (FRUIT FLAVOR) GUM PO PRN ×3 (09:03→16:15)
[2018-07-17] MEDS: Nicotine PATCH 21 MG/24 HR* PATCH TRANSDERM SCH (09:04)
[2018-07-17] MEDS: hydrOXYzine HCL TAB* 50 MG PO PRN (09:09)
[2018-07-17] MEDS: Vitamin THERAPEUTIC TAB PO SCH (10:12)
--- NOTE | 2018-07-17 12:01 | PN ---
Subjective - Subjective Date of Service: 07/17/18 Service Type: 60394 Hosp care 25 min moderate complexity Subjective: Pilar talks at length about how alone she feels. Despite being able to list her external supports, she cannot make the transition to feeling supported. She asks to speak several times today and also wants permission to talk to her therapist, Magali. I encourage her to call if she would like to. We discuss that it will be important for her to talk with her mother at some point about how she feels. She states, "I feel like therapy is my time." I encourage her to consider sharing one hour of "her time" with her mother and Magali. She states she feels in pain and wants that pain to end. She hovers around the idea of suicide and is non committal about safety. Objective - General Observations Appearance: Disheveled Appears Stated Age: Yes Stature: Thin Posture: Slumped Eye Contact: Average Behavior/Activity: Slowed - Interaction Observations Attitude Towards Examiner: Cooperative, Demanding Stated Mood: Dysphoric, Irritable, Anxious Affect: Blunted Speech Pattern/Tone: Clear Thought Process: Coherent Perception: WNL Thought Content: WNL, Preoccupation/Ruminations, Self-Deprecatory Hallucination Type: None Delusion Type: None - Cognitive Function Orientation: A&O x 4 Level of Consciousness: Awake, Alert, Appropriate Cognition: Impaired Attention/Concentration Estimated Intelligence: Borderline Range Insight: Mostly Blames Others for Problems Judgment Within Normal Limits: No Ability to Make Reasonable Decisions: Moderately Impaired - Medication Compliance Cooperative with Inpatient Medication Regimen: Yes - Group Participation Participates in Group Activities: Yes Assessment - Assessment Merits Inpatient Hospitalization: For Immediate Safety Inpatient DSM-V Dx: F32.9 Clinical Impression: "Pilar" is a 33-year-old white woman with a history of hospitalizations in other locations who [place] [facility] with thoughts of ending her life in the context of a dream she had as well as family conflict. She merits inpatient stay to come to [facility] where she will no longer have thoughts of suicide. Plan - Plan Treatment Plan: Name: SUBHA GRANADO Birthdate: 1985 [id number] Lexapro will be discontinued and Outpatient dose of mirtazapine will be restored to 30 mg. 07/17/18 Subha is encouraged to do work on her own, such as defining what a good mother for her would be and to determine exactly how she is feeling. Medications: Current Medications Acetaminophen (Tylenol Tab*) 650 mg PO Q4H PRN PRN Reason: PAIN or TEMP > 101 F Last Admin: 07/13/18 01:55 Dose: 650 mg Al Hydrox/Mg Hydrox/Simethicone (Maalox Plus*) 30 ml PO Q4H PRN PRN Reason: INDIGESTION Hydroxyzine HCl (Atarax Tab*) 50 mg PO DAILY PRN PRN Reason: ANXIETY Last Admin: 07/17/18 09:09 Dose: 50 mg Mirtazapine (Remeron Tab*) 30 mg PO BEDTIME [facility] Last Admin: 07/16/18 20:01 Dose: 30 mg Multivitamins (Theragran Tab*) 1 tab PO DAILY [facility] Last Admin: 07/17/18 10:12 Dose: Not Given Nicotine (Nicotine Patch 21 Mg/24 Hr*) 1 patch TRANSDERM DAILY [facility] Last Admin: 07/17/18 09:04 Dose: Not Given Nicotine Polacrilex (Nicotine Gum*) 2 mg PO Q2H PRN PRN Reason: CRAVINGS Last Admin: 07/17/18 09:03 Dose: 2 mg Pto: *Norethindrone /Ethinyl Estradiol * 1 dose PO BEDTIME [facility] Last Admin: 07/16/18 20:05 Dose: 1 dose Ondansetron HCl (Zofran Tab*) 4 mg PO BID PRN PRN Reason: NAUSEA Last Admin: 07/17/18 06:24 Dose: 4 mg Pharmacy Profile Note (Nicotine Patch Removal Note*) 1 note PATCH OFF 2100 [facility] Last Admin: 07/16/18 20:07 Dose: Not Given Prazosin HCl (Minipress Cap*) 3 mg PO BEDTIME [facility] Last Admin: 07/16/18 20:03 Dose: 3 mg Prazosin HCl (Minipress Cap*) 5 mg PO BEDTIME [facility] Last Admin: 07/16/18 20:04 Dose: 5 mg Sumatriptan Succinate (Imitrex Tab*) 100 mg PO DAILY PRN PRN Reason: MIGRAINE HEADACHE
--- NOTE | 2018-07-17 13:05 | PN ---
BSU: Group Therapy Note - Service Type Service Type: [id number] Group Psychotherapy - Cognitive Behavioral Group Therapy ( CBT):Patient was attentive and participatory in CBT programming this morning, and remained in good behavioral control. Patient expressed positive insights regarding relevant treatment interventions and goals.
[2018-07-17] MEDS: Prazosin CAP* 5 MG PO SCH (20:45)
[2018-07-17] MEDS: Mirtazapine TAB* 15 MG PO SCH (20:45)
[2018-07-17] MEDS: Prazosin CAP* 1 MG PO SCH (20:46)
[2018-07-17] MEDS: ETHINYL ESTRADIOL PO SCH (20:47)
[2018-07-17] MEDS: NORETHINDRONE PO SCH (20:47)
[2018-07-17] MEDS: Nicotine Patch Removal NOTE PATCH OFF SCH (20:48)
[2018-07-18] MEDS: Ondansetron TAB* 4 MG PO PRN ×2 (07:54→21:37)
[2018-07-18] MEDS: hydrOXYzine HCL TAB* 50 MG PO PRN (08:31)
[2018-07-18] MEDS: Nicotine* 2MG (FRUIT FLAVOR) GUM PO PRN ×3 (08:31→17:19)
[2018-07-18] MEDS: Vitamin THERAPEUTIC TAB PO SCH (08:32)
[2018-07-18] MEDS: Nicotine PATCH 21 MG/24 HR* PATCH TRANSDERM SCH (08:33)
--- NOTE | 2018-07-18 15:03 | PN ---
Subjective - Subjective Date of Service: 07/18/18 Service Type: 64231 Hosp care 25 min moderate complexity Subjective: I met with Pilar and her father briefly. Her father is eager to have Pilar participate in PROS in [place], which may be a possibility as [facility] does not have a PROS program. She will be talking with Kwame about that. Yesterday Pilar felt lonely, but today she states she feels distractible. We discuss that these are both feelings of anxiety and they must be conquered by her rather than with medication. She enjoys journaling but does not write about topics in particular; rather, she writes about her emotions in a lengthy and descriptive fashion with little focus. She wants to talk about medication, but we instead focus on topical journaling with Pilar. Pilar continues to struggle with suicidal thoughts. Objective - General Observations Appearance: Neat Appears Stated Age: Yes Stature: Thin Posture: WNL Eye Contact: Average Behavior/Activity: WNL, Slowed - Interaction Observations Attitude Towards Examiner: Cooperative Stated Mood: Dysphoric, Anxious Affect: Blunted Speech Pattern/Tone: Clear Thought Process: Coherent, Tangential Perception: WNL Thought Content: WNL, Preoccupation/Ruminations, Obsessional Thought Process: Lethality: Passive Wish, Suicidal Planning Hallucination Type: None Delusion Type: None - Cognitive Function Orientation: A&O x 4 Level of Consciousness: Awake, Alert, Appropriate Cognition: Impaired Attention/Concentration Estimated Intelligence: Borderline Range Insight: Mostly Blames Others for Problems Judgment Within Normal Limits: No Ability to Make Reasonable Decisions: Moderately Impaired - Medication Compliance Cooperative with Inpatient Medication Regimen: Yes - Group Participation Participates in Group Activities: Yes Assessment - Assessment Merits Inpatient Hospitalization: For Immediate Safety, For Stabilization Inpatient DSM-V Dx: F32.9 Clinical Impression: "Pilar" is a 33-year-old white woman with a history of hospitalizations in other locations who comes to [facility] with thoughts of ending her life in the context of a dream she had as well as family conflict. She merits inpatient stay to come to [facility] where she will no longer have thoughts of suicide. Plan - Plan Treatment Plan: Name: SUBHA GRANADO Birthdate: 1985 [id number] Lexapro will be discontinued and Outpatient dose of mirtazapine will be restored to 30 mg. 07/17/18 Subha is encouraged to do work on her own, such as defining what a good mother for her would be and to determine exactly how she is feeling. Continued Medication Management: Continue Outpt Medication Medications: Current Medications Acetaminophen (Tylenol Tab*) 650 mg PO Q4H PRN PRN Reason: PAIN or TEMP > 101 F Last Admin: 07/13/18 01:55 Dose: 650 mg Al Hydrox/Mg Hydrox/Simethicone (Maalox Plus*) 30 ml PO Q4H PRN PRN Reason: INDIGESTION Hydroxyzine HCl (Atarax Tab*) 50 mg PO DAILY PRN PRN Reason: ANXIETY Last Admin: 07/18/18 08:31 Dose: 50 mg Mirtazapine (Remeron Tab*) 30 mg PO BEDTIME [facility] Last Admin: 07/17/18 20:45 Dose: 30 mg Multivitamins (Theragran Tab*) 1 tab PO DAILY [facility] Last Admin: 07/18/18 08:32 Dose: 1 tab Nicotine (Nicotine Patch 21 Mg/24 Hr*) 1 patch TRANSDERM DAILY [facility] Last Admin: 07/18/18 08:33 Dose: Not Given Nicotine Polacrilex (Nicotine Gum*) 2 mg PO Q2H PRN PRN Reason: CRAVINGS Last Admin: 07/18/18 13:10 Dose: 2 mg Pto: *Norethindrone /Ethinyl Estradiol * 1 dose PO BEDTIME [facility] Last Admin: 07/17/18 20:47 Dose: 1 dose Ondansetron HCl (Zofran Tab*) 4 mg PO BID PRN PRN Reason: NAUSEA Last Admin: 07/18/18 07:54 Dose: 4 mg Pharmacy Profile Note (Nicotine Patch Removal Note*) 1 note PATCH OFF 2100 [facility] Last Admin: 07/17/18 20:48 Dose: Not Given Prazosin HCl (Minipress Cap*) 3 mg PO BEDTIME [facility] Last Admin: 07/17/18 20:46 Dose: 3 mg Prazosin HCl (Minipress Cap*) 5 mg PO BEDTIME [facility] Last Admin: 07/17/18 20:45 Dose: 5 mg Sumatriptan Succinate (Imitrex Tab*) 100 mg PO DAILY PRN PRN Reason: MIGRAINE HEADACHE - Discharge Plan Discharge Plan: Outpatient Follow Up
--- NOTE | 2018-07-18 16:31 | PN ---
Subjective - Subjective Service Type: 45093 Group Psychotherapy - Medication Education Group: Patient was attentive and participatory in group, and remained in good behavioral control. Patient expressed positive insights regarding relevant treatment interventions. Patient stated understanding of material discussed and had appropriate questions. Assessment - Assessment Inpatient DSM-V Dx: F32.9 Clinical Impression: "Pilar" is a 33-year-old white woman with a history of hospitalizations in other locations who comes to [facility] with thoughts of ending her life in the context of a dream she had as well as family conflict. She merits inpatient stay to come to [facility] where she will no longer have thoughts of suicide. Plan - Plan Treatment Plan: Name: GABRIEL GRANADO Birthdate: 1985 [id number] Lexapro will be discontinued and Outpatient dose of mirtazapine will be restored to 30 mg. 07/17/18 Gabriel is encouraged to do work on her own, such as defining what a good mother for her would be and to determine exactly how she is feeling. Medications: Current Medications Acetaminophen (Tylenol Tab*) 650 mg PO Q4H PRN PRN Reason: PAIN or TEMP > 101 F Last Admin: 07/13/18 01:55 Dose: 650 mg Al Hydrox/Mg Hydrox/Simethicone (Maalox Plus*) 30 ml PO Q4H PRN PRN Reason: INDIGESTION Hydroxyzine HCl (Atarax Tab*) 50 mg PO DAILY PRN PRN Reason: ANXIETY Last Admin: 07/18/18 08:31 Dose: 50 mg Mirtazapine (Remeron Tab*) 30 mg PO BEDTIME [facility] Last Admin: 07/17/18 20:45 Dose: 30 mg Multivitamins (Theragran Tab*) 1 tab PO DAILY [facility] Last Admin: 07/18/18 08:32 Dose: 1 tab Nicotine (Nicotine Patch 21 Mg/24 Hr*) 1 patch TRANSDERM DAILY [facility] Last Admin: 07/18/18 08:33 Dose: Not Given Nicotine Polacrilex (Nicotine Gum*) 2 mg PO Q2H PRN PRN Reason: CRAVINGS Last Admin: 07/18/18 13:10 Dose: 2 mg Pto: *Norethindrone /Ethinyl Estradiol * 1 dose PO BEDTIME [facility] Last Admin: 07/17/18 20:47 Dose: 1 dose Ondansetron HCl (Zofran Tab*) 4 mg PO BID PRN PRN Reason: NAUSEA Last Admin: 07/18/18 07:54 Dose: 4 mg Pharmacy Profile Note (Nicotine Patch Removal Note*) 1 note PATCH OFF 2099 [facility] Last Admin: 07/17/18 20:48 Dose: Not Given Prazosin HCl (Minipress Cap*) 3 mg PO BEDTIME [facility] Last Admin: 07/17/18 20:46 Dose: 3 mg Prazosin HCl (Minipress Cap*) 5 mg PO BEDTIME [facility] Last Admin: 07/17/18 20:45 Dose: 5 mg Sumatriptan Succinate (Imitrex Tab*) 100 mg PO DAILY PRN PRN Reason: MIGRAINE HEADACHE
[2018-07-18] MEDS: Mirtazapine TAB* 15 MG PO SCH (21:32)
[2018-07-18] MEDS: Prazosin CAP* 1 MG PO SCH (21:33)
[2018-07-18] MEDS: Prazosin CAP* 5 MG PO SCH (21:34)
[2018-07-18] MEDS: NORETHINDRONE PO SCH (21:36)
[2018-07-18] MEDS: ETHINYL ESTRADIOL PO SCH (21:36)
[2018-07-18] MEDS: Nicotine Patch Removal NOTE PATCH OFF SCH (21:36)
[2018-07-19] MEDS: Vitamin THERAPEUTIC TAB PO SCH (07:33)
[2018-07-19] MEDS: Nicotine PATCH 21 MG/24 HR* PATCH TRANSDERM SCH (07:33)
[2018-07-19] MEDS: Nicotine* 2MG (FRUIT FLAVOR) GUM PO PRN ×2 (09:09→13:01)
[2018-07-19] MEDS: hydrOXYzine HCL TAB* 50 MG PO PRN (15:52)
[2018-07-19] MEDS: Ondansetron TAB* 4 MG PO PRN (15:56)
[2018-07-19] MEDS: ETHINYL ESTRADIOL PO SCH (21:02)
[2018-07-19] MEDS: NORETHINDRONE PO SCH (21:02)
[2018-07-19] MEDS: Prazosin CAP* 5 MG PO SCH (21:03)
[2018-07-19] MEDS: Prazosin CAP* 1 MG PO SCH (21:03)
[2018-07-19] MEDS: Mirtazapine TAB* 15 MG PO SCH (21:03)
[2018-07-19] MEDS: Nicotine Patch Removal NOTE PATCH OFF SCH (21:04)
[2018-07-20] MEDS: Ondansetron TAB* 4 MG PO PRN (07:26)
[2018-07-20] MEDS: hydrOXYzine HCL TAB* 50 MG PO PRN (08:35)
[2018-07-20] MEDS: Nicotine* 2MG (FRUIT FLAVOR) GUM PO PRN ×2 (08:35→12:19)
[2018-07-20] MEDS: Vitamin THERAPEUTIC TAB PO SCH (08:40)
[2018-07-20] MEDS: Nicotine PATCH 21 MG/24 HR* PATCH TRANSDERM SCH (08:40)
[2018-07-20 11:18] VITALS: BP 115/66
--- NOTE | 2018-07-23 14:04 | CONS ---
PSYCHOLOGICAL TESTING NOTE: DATE OF CONSULT: 07/20/18 PROCEDURE CODE: [id number] REASON FOR REFERRAL: Subha was referred for personality testing secondary to concerns regarding depression and possible lethality as well as vulnerabilities regarding character traits consistent with borderline personality. TEST ADMINISTERED: Subha completed the [place] Multiphasic Personality Inventory-2 (MMPI-2), and was given feedback in individual conversation regarding testing results. RELEVANT HISTORY: This is Subha's second admission to this unit with her prior occurring in September 2017. She also has 2 other psychiatric admissions to different hospitals. Subha remained in outpatient therapy in [place], [place] and was encouraged to come to [facility] secondary to continuing difficulties with depression and lingering suicidal ideation. Subha describes struggling with suicidal thoughts for the past month after having had a dream where she believed that Sarah was in her room. She has found this experience very distressing and describes encroaching depressive symptomatology including social isolation as well as encroaching difficulties with anger as well. She describes having concerns that what she saw in the dream was in fact true and more than simply a bad dream. This has impaired her sleep to some degree and she describes struggling with feeling overwhelmed in high anxiety coupled with depressive features. She denies suicidal intent stating that she does not wish to harm her family or friends in such a fashion. 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 She describes being let go from that job secondary to her difficulties to manage depressive symptoms. She denies having been gainfully employed in the past year since being from her prior job in daycare. She describes having supportive friends as well as supportive family and describes prosocial interest in a spontaneous fashion. Subha is coherent and empathic in conversation and makes good eye contact. She presents with good affect, though that is appropriately variable in conversation, and is very actively engaged with peers while on the unit. TEST RESULTS: Subha's current results were compared with her prior tests completed in September 2017 with equivical results. She elevates the 3 emotional duress scales on validity indicators in a rather profound fashion with external stress scores attaining a T-score of 90 with the internal duress scale reflecting the T-score of 115. Concomitantly, she endorses very few emotional copying or self- esteem items on this administration of the test. Although she elevates the depression scale to a minimal degree, this is felt to be reassuring in terms of positive response to treatment as well as reduced concerns regarding lethality. She elevates the social duress scales significantly including the hypomania scale. As she does not present or endorse any clinical symptoms of bipolar condition in a systematic fashion at least, this finding is felt to be reflective of impulsivity. Feedback with Subha emphasized the importance of trying to curtail impulsive behaviors as they can lead to reckless decisions at times. Although she has elevated all of the social duress scales, there are no concerns regarding psychosis or marty. Testing results are felt to be reflective of some borderline personality features with concerns regarding Subha's interest in postponing planned discharge. There are concerns regarding secondary reinforcers that may occur secondary to inpatient status. IMPRESSIONS AND RECOMMENDATIONS: Subha impresses as a very pleasant, now 33 -year-old woman who expresses positive insights in context of both individual and group psychotherapies. She is invested in recovery processes, but seems to have difficulties in assuming adult responsibility in some fashions including looking for gainful employment again. Discussion addressing future plans was somewhat of a concern as she has difficulty identifying transitory events which may improve quality of life for her. Regardless, she impresses as a likely candidate to comply with recommended outpatient treatment and describes having good response historically to it. Concerns regarding lethality were effectively resolved in an acute sense with some enduring and chronic concerns moving forward. Subha's diagnosis reflects major depressive disorder with unspecified anxiety as well. Borderline personality traits are apparent in both the testing context as well as her clinical presentation. [id number]/[facility] #: [id number] JUDITH
--- NOTE | 2018-07-24 10:06 | DS ---
CC: JAMISON; Dr. Man Head * DISCHARGE SUMMARY: DATE OF ADMISSION: 07/13/18 DATE OF DISCHARGE: 07/20/18 PROVIDER: Ya Gross NP, Psychiatry. SUPERVISING PHYSICIAN: Javan Earl MD.* (DICTATED BY YA GROSS NP) DIAGNOSIS: Major depressive disorder, recurrent, rule out anxiety disorder. CONDITION AT THE TIME OF DISCHARGE: Subha is improved. Psychiatrically cleared, stable. She participated in groups and was social with peers. Her father is agreeable to her discharge. She has done well here psychiatrically. No medication changes were made by the end of her visit. She will return to [place] to see her providers, and she will be attending [facility]OS program. MENTAL STATUS EXAM: At the time of discharge, Subha is calm, cooperative, and makes good eye contact. She is alert and oriented x4. Her grooming is good. Her speech pace is normal. Her thought processes are logical. She is not psychotic or delusional. She denies AH, VH, SI, and HI. Her insight and judgment are fair to good. She is willing to follow up, and she is urged to continue seeing her therapist. DISCHARGE INSTRUCTIONS TO THE PATIENT: A. Medications: 1. Hydroxyzine 50 mg daily p.r.n. anxiety. 2. Mirtazapine 30 mg at bedtime daily. 3. Ondansetron 4 mg b.i.d. p.r.n. nausea. 4. Prazosin 8 mg at bedtime. 5. Imitrex 100 mg daily p.r.n. migraine headache. B. Diet is regular. C. Activities as tolerated. Asha is a nonsmoker. There are no studies pending at the time of discharge. D. Followup care: She has an appointment with JAMISON on 07/24/18 at 11 a.m., with Man Head on 07/27/18 at 10 a.m., and Asha made her own appointment with her therapist Rosina in the week following her discharge. E. Disposition: She is being discharged to home. F. Substance abuse followup is not indicated. HOSPITAL COURSE: Part A: Chief Complaint: "People are asking me why did I see it, was it a sign for something." HPI: The patient is a 33-year-old single white female with a history of depression and anxiety, who comes to the emergency department by car and is here on a voluntary status following a disturbing dream she had on 06/25/18, where she saw the devil in a dream, vividly seeing the horns and a face and a laughing face. Since then she has been spiralling into suicidal ideation and has plans, but has stopped herself from going through with them because she knows she would be hurting people too much. Subha has been struggling with suicidal ideation since approximately . She states before that she went on a trip to [place] with her father from 06/17/18 to 06/22/18. Everything there was okay. When she came home, she had this nightmare which led her to self isolate. She states that she went to her best friend eventually and the friend said, "why did you not come to me sooner." Subha states she did not want to worry her but she has been contemplating suicide since that dream. Subha is in therapy. She has gone to therapy 2 times the week of admission but continues to question why did she see what she saw in her dream and was it a sign for something. She also wonders if the dreams were real or not. Subha seems highly anxious. She does not sleep as well as she would like. She is not particularly irritable but she is guilt ridden about the fact that she could be putting people through difficulty by her own mental illness. She is distractible when I talk to her. She continues to look to the other side of the room and has trouble answering my questions. She is a reliable historian but her story meanders and she does not readily come to the point. The most relevant quote she gives is this, "I feel overwhelmed, I am stressed, my anxiety is high, my depression is getting worse. I have been acting like every thing is fine when it is not. The suicidal thoughts are there, but something is stopping me from doing it, like the people who will be hurt by it. I do not want to hurt my family and friends." Part B: Psychiatric treatment was rendered. Subha was admitted to the adult behavioral unit and placed on 15-minute checks for safety. She did advance to 30- minute checks and staff pass privileges. Subha did well on the unit, progressing slowly through her level of comfort. She went to groups. She interacted with peers well. We did attempt to make some medication changes including reducing the mirtazapine by half as it is more effective for sleep at lower doses and starting an SSRI. She did not like the side effects however, so we went back to her original medication regimen. It seems that the most effective way to treat Subha's distress was to give time to manage her own symptoms. Over the course of each day, she would come to a different conclusion about what her problems were. Each day it would change from being lonely to having dreams that are troubling, to needing her mother to not liking her mother. It was a difficult journey for her. We did discuss that she would do well to focus her thoughts to journal on specific topics rather than ranging widely about things that bother her. We also discussed using self affirmations to attempt to work with her insecurities. I did meet with her father briefly as well as with Asha at the same time. Her father was very displeased with her care in [place] which is where she is from and thus he wanted her to have all of her treatment in [facility]. She was able to be enrolled in the PROS program. She was able to be interviewed for the PROS program in [facility], as [place] does not have that program; her father was pleased to hear that. Apparently, Asha's perception is that her father does not like her therapist, Rosina. Her father states that it is not true. He simply thinks that [place] is full of drug addicts and bad people. No consults were entered for Asha, although she did request db romo to go with her lunch and dinner. She is improved. She has done a lot of the work herself. She is future oriented. She is eager to go. She originally was going to go on Monday, but changed her mind due to some conflict on the unit she was having that she did not discuss but was apparently with another patient. She wants to go home and surprise her best friend and to work on collages and affirmation workbooks. YA B. TITUS, TELEPHONE DIAPHRAGM ASSEMBLER [id number]/[facility] #: [id number] JUDITH
== END 2018-07-20 14:20 | disposition home or self-care (01) | DRG 751 ==
LOC: ED 18:58 → BSU 07-13 00:15
PROVIDERS: ADMIT Psychiatry & Neurology Psychiatry; ATTEND Psychiatry & Neurology Psychiatry
PROC: GZHZZZZ Group Psychotherapy (ICD-10-PCS; principal; 2018-07-20)
DX: F33.9 Major depressive disorder, recurrent, unspecified (principal); R45.851 Suicidal ideations; F41.9 Anxiety disorder, unspecified; F17.210 Nicotine dependence, cigarettes, uncomplicated; F60.9 Personality disorder, unspecified; J44.9 Chronic obstructive pulmonary disease, unspecified; K21.9 Gastro-esophageal reflux disease without esophagitis; F90.9 Attention-deficit hyperactivity disorder, unspecified type; Z88.1 Allergy status to other antibiotic agents; Z88.2 Allergy status to sulfonamides; Z88.8 Allergy status to other drugs, medicaments and biological substances; Z91.5 Personal history of self-harm
CPT/HCPCS: 36415; 80053; 80061; 80307; 80320; 80329; 81003; 81015; 83036; 84443; 84702; 85025; 87086; 90853; 99222; 99231; 99232; 99238; 99284; A9270-GY; G0480

== ENCOUNTER 2018-11-08 12:07 | Inpatient (IN) | payer OTHER ==
[2018-11-08 12:53] LABS: ABS Eosinophils 0.1 10^3/ul (0-0.6); ABS Lymphocytes 1.4 10^3/ul (1.0-4.8); ABS Monocytes 0.3 10^3/ul (0-0.8); ABS Neutrophils 5.3 10^3/ul (1.5-7.7); Eosinophil % 0.8 %; Hematocrit 42 % (35-47); Hemoglobin 14.1 g/dL (12.0-16.0); Lymphocyte % 19.4 %; Mean Corpuscular HGB Conc 34 g/dL (31-36); Mean Corpuscular Hemoglobin 31 pg (27-31); Mean Corpuscular Volume 90 fL (80-97); Mean Platelet Volume 8.5 fL (7.4-10.4); Nucleated Red Blood Cells % 0.1; Platelet Count 249 10^3/uL (150-450); Red Blood Count 4.61 10^6 /uL (3.70-4.87); Red Cell Distribution Width 13 % (10-15); White Blood Count 7.1 10^3/uL (3.5-10.8)
[2018-11-08 13:09] LABS: Urine Benzodiazepine Screen None Detected (None Detect); Urine Opiates Screen None Detected (None Detect)
[2018-11-08 13:11] LABS: ALT 8 U/L (7-52); AST 11 U/L (13-39); Albumin 4.2 g/dL (3.2-5.2); Albumin/Globulin Ratio 1.6 (1-3); Alkaline Phosphatase 44 U/L (34-104); Anion Gap 3 mmol/L (2-11); BUN/Creatinine Ratio 7.8 (8-20); Blood Urea Nitrogen 8 mg/dL (6-24); CO2 Carbon Dioxide 25 mmol/L (22-32); Calcium 9.2 mg/dL (8.6-10.3); Chloride 110 mmol/L (101-111); EGFR African American 75.1 (>60); EGFR Non-African American 62.1 (>60); Globulin 2.7 g/dL (2-4); Glucose 83 mg/dL (70-100); Potassium 4.3 mmol/L (3.5-5.0); Sodium 138 mmol/L (135-145); Total Protein 6.9 g/dL (6.4-8.9)
[2018-11-08 13:32] LABS: Urine Appearance Clear; Urine Bacteria Absent (Absent); Urine Bilirubin Negative (Negative); Urine Blood 2+ (Negative); Urine Color Straw; Urine Glucose Negative (Negative); Urine Ketones Negative (Negative); Urine Nitrite Negative (Negative); Urine Protein Negative (Negative); Urine Red Blood Cell Trace(0-2/hpf) (Absent); Urine Specific Gravity 1.004 (1.010-1.030); Urine Squamous Epithelial Cell Present (Absent); Urine Urobilinogen Negative (Negative); Urine White Blood Cell Absent (Absent)
[2018-11-08 13:37] LABS: Acetaminophen < 15 mcg/mL; Alcohol < 10 mg/dL (<10); Salicylate < 2.50 mg/dL (<30)
[2018-11-08 13:42] LABS: TSH (Thyroid Stimulating Horm) 1.35 mcIU/mL (0.34-5.60)
[2018-11-08] MEDS ORDERED: Al Hydrox/Mg Hydrox/Simet LIQ* 30 ML UDC PO PRN (14:42)
[2018-11-08] MEDS ORDERED: Acetaminophen TAB* 325 MG PO PRN (14:42)
[2018-11-08] MEDS: hydrOXYzine HCL TAB* 50 MG PO PRN (20:46)
[2018-11-08] MEDS ORDERED: Mirtazapine TAB* 15 MG PO SCH (21:00)
[2018-11-08] MEDS ORDERED: Prazosin CAP* 5 MG PO SCH (21:00)
[2018-11-08] MEDS ORDERED: Prazosin CAP* 1 MG PO SCH (21:00)
[2018-11-09] MEDS: Ondansetron TAB* 4 MG PO PRN (07:23)
[2018-11-09] MEDS ORDERED: Vilazodone (NF) 40 MG TAB PO SCH (09:00)
[2018-11-09] MEDS ORDERED: ETHINYL ESTRADIOL PO SCH (09:00)
[2018-11-09] MEDS ORDERED: NORETHINDRONE ACETATE PO SCH (09:00)
[2018-11-09] MEDS: Nicotine* 2MG (FRUIT FLAVOR) GUM PO PRN ×3 (10:03→18:59)
--- NOTE | 2018-11-09 12:26 | ED ---
Psychiatric Complaint - HPI Summary HPI Summary: This patient is a 33-year-old female presents to the ED with family member. Patient states for the past month she has been complaining of suicidal ideations. She has several plans in place, specifically driving into the wrong lonny, jumping off a bridge and taking an overdose of unknown medications. Patient is endorsing worsening depression and anxiety, however denies any worsening stress in her life. She states she is still with this in the past, has no prior attempts. Denies any homicidal ideation. - History Of Current Complaint Chief Complaint: EDSuicidal Time Seen by Provider: 11/08/18 12:18 Hx Obtained From: Patient ?: No Onset/Duration: Sudden Onset Timing: Constant Severity Initially: Severe Severity Currently: Severe Character: Depressed Aggravating Factor(s): Nothing Alleviating Factor(s): Nothing Associated Signs And Symptoms: Positive: Negative Related History: Positive For: Prior Psychiatric Issues Has Suicidal: Reports: Thoughts, With A Plan - Allergies/Home Medications Allergies/Adverse Reactions: Allergies Allergy/AdvReac Type Severity Reaction Status Date / Time azithromycin [From Zithromax] Allergy Vomiting Verified 07/12/18 19:04 fluconazole [From Diflucan] Allergy Unknown Verified 07/12/18 19:04 Reaction Details sulfamethoxazole Allergy Unknown Verified 07/12/18 19:04 [From Bactrim] Reaction Details trimethoprim [From Bactrim] Allergy Unknown Verified 07/12/18 19:04 Reaction Details venlafaxine [From Effexor] Allergy Hives Verified 07/12/18 19:04 Home Medications: Home Medications Mirtazapine TAB* [Remeron TAB*] 15 mg PO BEDTIME 11/08/18 [History Confirmed ] Norethindrone/Eth Est .07/12NF [Junel (NF)] 1 tab PO DAILY 11/08/18 [ History Confirmed 11/08/18] Vilazodone (NF) [Viibryd (NF)] 40 mg PO DAILY 11/08/18 [History Confirmed ] PMH/Surg Hx/FS Hx/Imm Hx Previously Healthy: Yes Endocrine/Hematology History: Denies: Hx Diabetes Respiratory History: Reports: Hx Chronic Obstructive Pulmonary Disease (COPD), Hx Pneumonia Denies: Hx Asthma, Hx Chronic Bronchitis, Hx Cystic Fibrosis, Hx Lung Cancer , Hx Pleural Effusion GI History: Reports: Hx Gastroesophageal Reflux Disease Musculoskeletal History: Reports: Hx Bursitis, Hx Orthopedic Injury - Right foot , Hx Tendonitis Sensory History: Reports: Hx Contacts or Glasses Denies: Hx Legally Blind, Hx Deafness, Hx Hearing Aid Opthamlomology History: Reports: Hx Contacts or Glasses Denies: Hx Legally Blind Neurological History: Reports: Hx Headaches, Hx Migraine Psychiatric History: Reports: Hx Anxiety, Hx Attention Deficit Hyperactivity Disorder, Hx Depression, Hx Post Traumatic Stress Disorder, Hx Inpatient Treatment, Hx Community Mental Health Tx, Hx Suicide Attempt Denies: Hx Eating Disorder, Hx Panic Disorder, Hx Schizophrenia, Hx Bipolar Disorder, Hx of Violent Episodes Against Others, Hx Substance Abuse, Other Psychiatric Issues/Disorders - Surgical History Surgery Procedure, Year, and Place: cervical 2013. Right foot 2001, 2002, 2006 , 2007, 2015 - Immunization History Hx Pertussis Vaccination: No Immunizations Up to Date: Yes Infectious Disease History: No Infectious Disease History: Denies: Traveled Outside the [place] in Last 30 Days - Family History Known Family History: Negative: Diabetes - Social History Occupation: Unemployed Lives: With Family Alcohol Use: None Hx Substance Use: No Substance Use Type: Reports: None Hx Tobacco Use: No Smoking Status (MU): Light Every Day Tobacco Smoker Have You Smoked in the Last Year: No Review of Systems Constitutional: Negative Negative: Fever, Chills, Fatigue, Skin Diaphoresis Negative: Palpitations Negative: Shortness Of Breath, Cough Negative: Arthralgia, Myalgia Negative: Rash, Bruising Positive: Anxious, Depressed All Other Systems Reviewed And Are Negative: Yes Physical Exam Triage Information Reviewed: Yes Vital Signs On Initial Exam: Initial Vitals Temp Pulse Resp BP Pulse Ox 97.9 F 88 18 123/81 99 11/08/18 12:15 11/08/18 12:15 11/08/18 12:15 11/08/18 12:15 11/08/18 12:15 Vital Signs Reviewed: Yes Appearance: Positive: Well-Appearing, Well-Nourished Skin: Positive: Warm, Skin Color Reflects Adequate Perfusion Head/Face: Positive: Normal Head/Face Inspection Eyes: Positive: EOMI, MARCELLO, Conjunctiva Clear Neck: Positive: Supple, No Lymphadenopathy Respiratory/Lung Sounds: Positive: Clear to Auscultation, Breath Sounds Present Cardiovascular: Positive: RRR, Pulses are Symmetrical in both Upper and Lower Extremities Musculoskeletal: Positive: Normal, Strength/ROM Intact Psychiatric: Positive: Anxious, Depressed AVPU Assessment: Alert Diagnostics - Vital Signs Vital Signs Temp Pulse Resp BP Pulse Ox 11/08/18 12:15 97.9 F 88 18 123/81 99 - Laboratory Lab Results: Lab Results 11/08/18 11/08/18 11/08/18 Range/Units 12:30 12:30 12:42 WBC 7.1 (3.5-10.8) 10^3/uL RBC 4.61 (3.70-4.87) 10^6 /uL Hgb 14.1 (12.0-16.0) g/dL Hct 42 (35-47) % MCV 90 (80-97) fL MCH 31 (27-31) pg MCHC 34 (31-36) g/dL RDW 13 (10-15) % Plt Count 249 (150-450) 10^3/uL MPV 8.5 (7.4-10.4) fL Neut % (Auto) 75.3 % Lymph % (Auto) 19.4 % [place] % (Auto) 3.9 % Eos % (Auto) 0.8 % Baso % (Auto) 0.6 % Absolute Neuts (auto) 5.3 (1.5-7.7) 10^3/ul Absolute Lymphs (auto) 1.4 (1.0-4.8) 10^3/ul Absolute Monos (auto) 0.3 (0-0.8) 10^3/ul Absolute Eos (auto) 0.1 (0-0.6) 10^3/ul Absolute Basos (auto) 0.0 (0-0.2) 10^3/ul Absolute Nucleated RBC 0.0 10^3/ul Nucleated RBC % 0.1 Sodium (135-145) mmol/L Potassium (3.5-5.0) mmol/L Chloride (101-111) mmol/L Carbon Dioxide (22-32) mmol/L Anion Gap (2-11) mmol/L BUN (6-24) mg/dL Creatinine (0.51-0.95) mg/dL Est GFR ( Amer) (>60) Est GFR (Non-Af Amer) (>60) BUN/Creatinine Ratio (8-20) Glucose (70-100) mg/dL Calcium (8.6-10.3) mg/dL Total Bilirubin (0.2-1.0) mg/dL AST (13-39) U/L ALT (7-52) U/L Alkaline Phosphatase (34-104) U/L Total Protein (6.4-8.9) g/dL Albumin (3.2-5.2) g/dL Globulin (2-4) g/dL Albumin/Globulin Ratio (1-3) TSH (0.34-5.60) mcIU/mL Urine Color Straw Urine Appearance Clear Urine pH 5.0 (5-9) Ur Specific [place] 1.004 L (1.010-1.030) Urine Protein Negative (Negative) Urine Ketones Negative (Negative) Urine Blood 2+ A (Negative) Urine Nitrate Negative (Negative) Urine Bilirubin Negative (Negative) Urine Urobilinogen Negative (Negative) Ur Leukocyte Esterase Negative (Negative) Urine WBC (Auto) Absent (Absent) Urine RBC (Auto) Trace(0-2/hpf) (Absent) Ur Squamous Epith Cells Present A (Absent) Urine Bacteria Absent (Absent) Urine Glucose Negative (Negative) Salicylates (<30) mg/dL Urine Opiates Screen None detected (None Detect) Acetaminophen mcg/mL Ur Barbiturates Screen None detected (None Detect) Ur Phencyclidine Scrn None detected (None Detect) Ur Amphetamines Screen None detected (None Detect) U Benzodiazepines Scrn None detected (None Detect) Urine Cocaine Screen None detected (None Detect) U Cannabinoids Screen None detected (None Detect) Serum Alcohol (<10) mg/dL 11/08/18 Range/Units 12:42 WBC (3.5-10.8) 10^3/uL RBC (3.70-4.87) 10^6 /uL Hgb (12.0-16.0) g/dL Hct (35-47) % MCV (80-97) fL MCH (27-31) pg MCHC (31-36) g/dL RDW (10-15) % Plt Count (150-450) 10^3/uL MPV (7.4-10.4) fL Neut % (Auto) % Lymph % (Auto) % [place] % (Auto) % Eos % (Auto) % Baso % (Auto) % Absolute Neuts (auto) (1.5-7.7) 10^3/ul Absolute Lymphs (auto) (1.0-4.8) 10^3/ul Absolute Monos (auto) (0-0.8) 10^3/ul Absolute Eos (auto) (0-0.6) 10^3/ul Absolute Basos (auto) (0-0.2) 10^3/ul Absolute Nucleated RBC 10^3/ul Nucleated RBC % Sodium 138 (135-145) mmol/L Potassium 4.3 (3.5-5.0) mmol/L Chloride 110 (101-111) mmol/L Carbon Dioxide 25 (22-32) mmol/L Anion Gap 3 (2-11) mmol/L BUN 8 (6-24) mg/dL Creatinine 1.03 H (0.51-0.95) mg/dL Est GFR ( Amer) 75.1 (>60) Est GFR (Non-Af Amer) 62.1 (>60) BUN/Creatinine Ratio 7.8 L (8-20) Glucose 83 (70-100) mg/dL Calcium 9.2 (8.6-10.3) mg/dL Total Bilirubin 0.50 (0.2-1.0) mg/dL AST 11 L (13-39) U/L ALT 8 (7-52) U/L Alkaline Phosphatase 44 (34-104) U/L Total Protein 6.9 (6.4-8.9) g/dL Albumin 4.2 (3.2-5.2) g/dL Globulin 2.7 (2-4) g/dL Albumin/Globulin Ratio 1.6 (1-3) TSH 1.35 (0.34-5.60) mcIU/mL Urine Color Urine Appearance Urine pH (5-9) Ur Specific Hamilton (1.010-1.030) Urine Protein (Negative) Urine Ketones (Negative) Urine Blood (Negative) Urine Nitrate (Negative) Urine Bilirubin (Negative) Urine Urobilinogen (Negative) Ur Leukocyte Esterase (Negative) Urine WBC (Auto) (Absent) Urine RBC (Auto) (Absent) Ur Squamous Epith Cells (Absent) Urine Bacteria (Absent) Urine Glucose (Negative) Salicylates < 2.50 (<30) mg/dL Urine Opiates Screen (None Detect) Acetaminophen < 15 mcg/mL Ur Barbiturates Screen (None Detect) Ur Phencyclidine Scrn (None Detect) Ur Amphetamines Screen (None Detect) U Benzodiazepines Scrn (None Detect) Urine Cocaine Screen (None Detect) U Cannabinoids Screen (None Detect) Serum Alcohol < 10 (<10) mg/dL Result Diagrams: 11/08/18 12:42 11/08/18 12:42 Lab Statement: Any lab studies that have been ordered have been reviewed, and results considered in the medical decision making process. Course/Dx - Course Course Of Treatment: During the course of treatment, the patient is evaluated for suicidal ideation. She denies any physical symptoms. She is cleared for mental health evaluation. Mental-health completed and she will be admitted to the unit. - Differential Dx/Clinical Impression Differential Diagnosis/HQI/PQRI: Positive: Suicide Attempt, Suicidal Ideation, Suicidal Gesture Provider Diagnosis: Suicidal ideation Discharge ED - Sign-Out/Discharge Documenting (check all that apply): Patient Departure All imaging exams completed and their final reports reviewed: No Patient Received Moderate/Deep Sedation with Procedure: No - Discharge Plan Condition: Fair [facility]illing Disposition and Condition Condition: FAIR Disposition: Psychiatric Facility [facility]
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
[2018-11-09] MEDS: Mirtazapine TAB* 15 MG PO SCH (20:34)
[2018-11-09] MEDS: Prazosin CAP* 5 MG PO SCH (20:35)
[2018-11-09] MEDS: ETHINYL ESTRADIOL PO SCH (20:36)
[2018-11-09] MEDS: NORETHINDRONE PO SCH (20:36)
[2018-11-10 08:11] LABS: HDL Cholesterol 48.8 mg/dL
[2018-11-10] MEDS: Nicotine* 2MG (FRUIT FLAVOR) GUM PO PRN ×2 (08:57→13:21)
[2018-11-10] MEDS ORDERED: VILAZODONE 20 MG PO SCH (09:00)
--- NOTE | 2018-11-10 15:48 | PN ---
Subjective - Subjective Date of Service: 11/10/18 Service Type: 84120 Hosp care 25 min moderate complexity Subjective: Subha continues to be depressed, sad and has intense feelings of emptiness. Suicidal thoughts come and go but no active plans. No psychiatric services established yet due to conflict of clinics in [place] not allowing to keep her therapist if she wants to see a clinic psychiatrist. Lives with parents and a brother. Feels spaced out due to daytime meds. Objective - General Observations Appearance: Unkempt Appears Stated Age: Yes Stature: Thin, Tall Posture: WNL Eye Contact: Average Behavior/Activity: WNL - Interaction Observations Attitude Towards Examiner: Cooperative Stated Mood: Dysphoric Affect: Restricted Speech Pattern/Tone: Clear, Appropriate, Normal Volume Thought Process: Coherent, Goal Directed Perception: WNL Thought Content: WNL Thought Process: Lethality: Passive Wish Hallucination Type: Denies Delusion Type: Denies - Cognitive Function Orientation: A&O x 4 Level of Consciousness: Awake, Alert Cognition: WNL Estimated Intelligence: Normal Insight: WNL Judgment Within Normal Limits: No - Medication Compliance Cooperative with Inpatient Medication Regimen: Yes - Group Participation Participates in Group Activities: Yes Assessment - Assessment Merits Inpatient Hospitalization: For Immediate Safety, For Stabilization, For Discharge Planning Clinical Impression: Still depressed and suicidal off and on. Plan - Plan Treatment Plan: Name: SUBHA GRANADO Birthdate: 1985 [id number] Continued Medication Management: Continue Outpt Medication Medications: Current Medications Acetaminophen (Tylenol Tab*) 650 mg PO Q4H PRN PRN Reason: for pain; or Temp >101 F Al Hydrox/Mg Hydrox/Simethicone (Maalox Plus*) 30 ml PO Q4H PRN PRN Reason: INDIGESTION Hydroxyzine HCl (Atarax Tab*) 50 mg PO Q6H PRN PRN Reason: anxiety Last Admin: 11/08/18 20:46 Dose: 50 mg Mirtazapine (Remeron Tab*) 30 mg PO BEDTIME CIRILO Last Admin: 11/09/18 20:34 Dose: 30 mg Nicotine Polacrilex (Nicotine Gum*) 2 mg PO Q2H PRN PRN Reason: CRAVING Last Admin: 11/10/18 13:21 Dose: 2 mg Pto: Norethindrone/Ethinyl Estradiol 1mg/0.02mg (June) 1 dose PO BEDTIME CIRILO Last Admin: 11/09/18 20:36 Dose: 1 dose Ondansetron HCl (Zofran Tab*) 4 mg PO BID PRN PRN Reason: NAUSEA Last Admin: 11/09/18 07:23 Dose: 4 mg Prazosin HCl (Minipress Cap*) 10 mg PO BEDTIME CIRILO Last Admin: 11/09/18 20:35 Dose: 10 mg Vilazodone HCl (Viibryd (Nf)) 20 mg PO BEDTIME CIRILO - Discharge Plan Discharge Plan: Outpatient Follow Up Outpatient Program: [facility]
[2018-11-10] MEDS: Mirtazapine TAB* 15 MG PO SCH (20:31)
[2018-11-10] MEDS: Prazosin CAP* 5 MG PO SCH (20:31)
[2018-11-10] MEDS: NORETHINDRONE PO SCH (20:33)
[2018-11-10] MEDS: ETHINYL ESTRADIOL PO SCH (20:33)
[2018-11-11] MEDS: Nicotine* 2MG (FRUIT FLAVOR) GUM PO PRN ×2 (09:05→15:38)
[2018-11-11] MEDS: hydrOXYzine HCL TAB* 50 MG PO PRN (17:20)
[2018-11-11] MEDS: ETHINYL ESTRADIOL PO SCH (20:37)
[2018-11-11] MEDS: NORETHINDRONE PO SCH (20:37)
[2018-11-11] MEDS: Mirtazapine TAB* 15 MG PO SCH (20:37)
[2018-11-11] MEDS: Prazosin CAP* 5 MG PO SCH (20:37)
[2018-11-11] MEDS: VILAZODONE 20 MG PO SCH (20:37)
[2018-11-12] MEDS: Nicotine* 2MG (FRUIT FLAVOR) GUM PO PRN ×2 (08:36→13:44)
[2018-11-12] MEDS: Ondansetron TAB* 4 MG PO PRN (08:37)
[2018-11-12] MEDS: hydrOXYzine HCL TAB* 50 MG PO PRN (10:54)
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
[2018-11-12] MEDS: VILAZODONE 20 MG PO SCH (21:42)
[2018-11-12] MEDS: ETHINYL ESTRADIOL PO SCH (21:43)
[2018-11-12] MEDS: Prazosin CAP* 5 MG PO SCH (21:43)
[2018-11-12] MEDS: NORETHINDRONE PO SCH (21:43)
[2018-11-12] MEDS: Mirtazapine TAB* 15 MG PO SCH (21:44)
[2018-11-13] MEDS: Nicotine* 2MG (FRUIT FLAVOR) GUM PO PRN ×2 (08:57→12:28)
[2018-11-13] MEDS: Ondansetron TAB* 4 MG PO PRN (08:57)
[2018-11-13] MEDS: hydrOXYzine HCL TAB* 50 MG PO PRN (12:28)
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
[2018-11-13] MEDS: Mirtazapine TAB* 15 MG PO SCH (20:51)
[2018-11-13] MEDS: Prazosin CAP* 5 MG PO SCH (20:52)
[2018-11-13] MEDS: VILAZODONE 20 MG PO SCH (20:52)
[2018-11-13] MEDS: NORETHINDRONE PO SCH (20:52)
[2018-11-13] MEDS: ETHINYL ESTRADIOL PO SCH (20:52)
[2018-11-14] MEDS: Nicotine* 2MG (FRUIT FLAVOR) GUM PO PRN ×2 (08:44→16:18)
[2018-11-14] MEDS: hydrOXYzine HCL TAB* 50 MG PO PRN ×2 (16:18→22:43)
--- NOTE | 2018-11-14 16:30 | PN ---
BSU: Group Therapy Note - Service Type Service Type: 61834 Group Psychotherapy - Asha was appropriate and pleasant and participatory. She asked good questions and offered good insights. - Group Participation Patient Participating in Group: Yes Level of Group Participation: Attentive, Spontaneously Participate Relatedness to Group: Well Related
--- NOTE | 2018-11-14 16:53 | PN ---
Subjective - Subjective Date of Service: 11/14/18 Service Type: 09830 Hosp care 15 min low complexity Subjective: Asha is doing well, although she still cannot see a clear or desirable future. She remains at risk for suicide. Still, things are improving for her. She has completed a future-oriented worksheet that has helped her; still, the idea of a future full of things to do or what might happen is elusive for Asha. She notes that she has swollen ankles. I did contact the [facility] pharmacist regarding this. It can be related to prazosin, but it is not a threatening problem. I will discuss this with Asha and see if she would like to reduce dose. The information from the pharmacist, Vania, is that it can clear up on its own and that it needs to be discontinued in heart failure of cirrhosis. Objective - General Observations Appearance: Neat Appears Stated Age: Yes Stature: WNL Posture: WNL Eye Contact: Intense Behavior/Activity: WNL - Interaction Observations Attitude Towards Examiner: Cooperative, Anxious Stated Mood: Dysphoric Affect: Blunted Speech Pattern/Tone: Clear Thought Process: Coherent Perception: WNL Thought Content: Depressive, Self-Deprecatory Thought Process: Lethality: Passive Wish Hallucination Type: None Delusion Type: None - Cognitive Function Orientation: A&O x 4 Level of Consciousness: Awake, Alert, Appropriate Cognition: Impaired Fund of Knowledge Estimated Intelligence: Normal Insight: Mostly Blames Others for Problems Judgment Within Normal Limits: No Ability to Make Reasonable Decisions: Moderately Impaired - Medication Compliance Cooperative with Inpatient Medication Regimen: Yes - Group Participation Participates in Group Activities: Partial Assessment - Assessment Merits Inpatient Hospitalization: For Immediate Safety Inpatient DSM-V Dx: F33.2 Clinical Impression: sAha is a 33-year-old white woman who comes to the hospital diagnosed with major depressive disorder, recurrent, severe, with suicidal ideation related to personal stressors that she has difficulty acknowledging and confronting. Plan - Plan Treatment Plan: Name: SUBHA GRANADO Birthdate: 1985 [id number] Change medications from intake back to last admission (30 mg of mirtazapine) and with the change to Viibryd 20 mg from 40 mg. Encourage sleep hygiene and discussion of personal stressors. 11/13/18 Some of the cause of Subha's distress is interpersonal. Discussions aimed at moving toward the future will be most helpful. Looking at the future without judgment of the past will also be helpful. 11/14/18 Subha made some progress with ideas of her future. She is accepting some responsibility for her choices, including making new choices regarding what she would like to do (like volunteer). Asha continues to struggle with nailing down what she wants her future to look like. Working on those ideas will be valdez. Medications: Current Medications Acetaminophen (Tylenol Tab*) 650 mg PO Q4H PRN PRN Reason: for pain; or Temp >101 F Last Admin: 11/13/18 20:56 Dose: 650 mg Al Hydrox/Mg Hydrox/Simethicone (Maalox Plus*) 30 ml PO Q4H PRN PRN Reason: INDIGESTION Hydroxyzine HCl (Atarax Tab*) 50 mg PO Q6H PRN PRN Reason: anxiety Last Admin: 11/14/18 16:18 Dose: 50 mg Mirtazapine (Remeron Tab*) 30 mg PO BEDTIME CIRILO Last Admin: 11/13/18 20:51 Dose: 30 mg Nicotine Polacrilex (Nicotine Gum*) 2 mg PO Q2H PRN PRN Reason: CRAVING Last Admin: 11/14/18 16:18 Dose: 2 mg Pto: Norethindrone/Ethinyl Estradiol 1mg/0.02mg (Junel) 1 dose PO BEDTIME CIRILO Last Admin: 11/13/18 20:52 Dose: 1 dose Ondansetron HCl (Zofran Tab*) 4 mg PO BID PRN PRN Reason: NAUSEA Last Admin: 11/13/18 08:57 Dose: 4 mg Prazosin HCl (Minipress Cap*) 10 mg PO BEDTIME CIRILO Last Admin: 11/13/18 20:52 Dose: 10 mg Vilazodone HCl (Viibryd (Nf)) 20 mg PO BEDTIME CIRILO Last Admin: 11/13/18 20:52 Dose: 20 mg - Discharge Plan Discharge Plan: Outpatient Follow Up
[2018-11-14] MEDS: NORETHINDRONE PO SCH (22:01)
[2018-11-14] MEDS: Mirtazapine TAB* 15 MG PO SCH (22:01)
[2018-11-14] MEDS: ETHINYL ESTRADIOL PO SCH (22:01)
[2018-11-14] MEDS: Prazosin CAP* 5 MG PO SCH (22:02)
[2018-11-14] MEDS: VILAZODONE 20 MG PO SCH (22:03)
[2018-11-15] MEDS: hydrOXYzine HCL TAB* 50 MG PO PRN (09:25)
[2018-11-15] MEDS: Nicotine* 2MG (FRUIT FLAVOR) GUM PO PRN (09:48)
[2018-11-15 21:07] VITALS: BP 118/70
[2018-11-15] MEDS: Mirtazapine TAB* 15 MG PO SCH (21:07)
[2018-11-15] MEDS: Prazosin CAP* 5 MG PO SCH (21:08)
[2018-11-15] MEDS: VILAZODONE 20 MG PO SCH (21:09)
[2018-11-15] MEDS: ETHINYL ESTRADIOL PO SCH (21:11)
[2018-11-15] MEDS: NORETHINDRONE PO SCH (21:11)
[2018-11-16] MEDS: Nicotine* 2MG (FRUIT FLAVOR) GUM PO PRN (08:53)
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
== END 2018-11-16 13:51 | disposition home or self-care (01) | DRG 751 ==
LOC: ED 12:07 → BSU 14:42
PROVIDERS: ADMIT Psychiatry & Neurology Psychiatry; ATTEND Psychiatry & Neurology Psychiatry
DX: F33.2 Major depressive disorder, recurrent severe without psychotic features (principal); R45.851 Suicidal ideations; F43.10 Post-traumatic stress disorder, unspecified; M25.472 Effusion, left ankle; M25.471 Effusion, right ankle; Z79.3 Long term (current) use of hormonal contraceptives; Z79.899 Other long term (current) drug therapy; Z88.1 Allergy status to other antibiotic agents; Z88.2 Allergy status to sulfonamides; Z88.8 Allergy status to other drugs, medicaments and biological substances
CPT/HCPCS: 36415; 80053; 80061; 80307; 80320; 80329; 81003; 81015; 83036; 84443; 85025; 90853; 99222; 99231; 99232; 99238; 99284; A9270-GY; G0480